=== PATIENT | male | born 1930 | race Caucasian/White ===

== ENCOUNTER → 2016-09-05 | Outpatient (CLI) | payer MEDICARE, OTHER ==
[~2016-09-05] MED LIST: ACET30TAB PO; ATEN25TA PO; ATOR1TAB19 PO; BACT800T5 PO; BIMA01SOL OU; BRIM1OPD OU; CALC600T21 PO; CHONDROITIN PO; COEN200C PO; FISH1000 PO; GLUCOS PO; LIPI10TA PO; MOME50SP; MVI PO; VITA500C24 PO
[2016-09-05 13:47] LABS: MEAN CORPUSCULAR HEMOGLOBIN 29.5 pg (27.0-33.0); MEAN CORPUSCULAR HGB CONC 32.6 g/dl (32.0-36.5); MEAN CORPUSCULAR VOLUME 90.6 fl (80.0-96.0); RED CELL DISTRIBUTION WIDTH 13.9 % (11.5-14.5); WHITE BLOOD COUNT 9.6 K/mm3 (4.0-10.0)
== END ==
LOC: M SMT 10:13
PROVIDERS: ATTEND Urology
DX: C67.9 Malignant neoplasm of bladder, unspecified (principal); Z79.899 Other long term (current) drug therapy

== ENCOUNTER → 2016-10-24 | Outpatient (REF) | payer MEDICARE, OTHER | LOC: M SMT 17:16 | PROVIDERS: ATTEND Urology | DX: Z85.51 Personal history of malignant neoplasm of bladder (principal) ==

== ENCOUNTER → 2016-11-16 | Outpatient (REF) | payer MEDICARE, OTHER ==
[2016-11-16 12:58] LABS: ALBUMIN 3.3 GM/DL (3.2-5.2); ALBUMIN/GLOBULIN RATIO 0.97 (1.00-1.93); ALKALINE PHOSPHATASE 89 U/L (45-117); ALT/SGPT 28 U/L (12-78); ANION GAP 6 MEQ/L (8-16); AST/SGOT 21 U/L (15-37); BILIRUBIN,TOTAL 0.8 MG/DL (0.2-1.0); BLOOD UREA NITROGEN 27 MG/DL (7-18); CALCIUM LEVEL 8.3 MG/DL (8.8-10.2); CARBON DIOXIDE LEVEL 27 MEQ/L (21-32); CHLORIDE LEVEL 107 MEQ/L (98-107); GLOMERULAR FILTRATION RATE > 60.0 (>35); GLUCOSE, FASTING 94 MG/DL (83-110); POTASSIUM SERUM 4.2 MEQ/L (3.5-5.1); SODIUM LEVEL 140 MEQ/L (136-145); TOTAL PROTEIN 6.7 GM/DL (6.4-8.2)
== END ==
LOC: M SFHCPLAZ 08:58
PROVIDERS: ATTEND Internal Medicine
DX: R94.6 Abnormal results of thyroid function studies (principal); Z85.51 Personal history of malignant neoplasm of bladder

== ENCOUNTER → 2017-05-03 | Outpatient (REF) | payer MEDICARE, OTHER ==
[~2017-05-03] MED LIST changes: -CALC600T21 PO; +CALC600T60 PO
== END ==
LOC: M SMT 10:07
PROVIDERS: ATTEND Urology
DX: N39.0 Urinary tract infection, site not specified (principal)

== ENCOUNTER → 2017-05-08 | Outpatient (REF) | payer MEDICARE, OTHER ==
[2017-05-08 12:19] LABS: MEAN CORPUSCULAR HEMOGLOBIN 29.6 pg (27.0-33.0); MEAN CORPUSCULAR HGB CONC 33.3 g/dl (32.0-36.5); MEAN CORPUSCULAR VOLUME 89.1 fl (80.0-96.0); PLATELET COUNT, AUTOMATED 189 10^3/uL (150-450); RED CELL DISTRIBUTION WIDTH 13.9 % (11.5-14.5); WHITE BLOOD COUNT 8.7 10^3/uL (4.0-10.0)
[2017-05-08 13:38] LABS: ALBUMIN 3.4 GM/DL (3.2-5.2); ALBUMIN/GLOBULIN RATIO 0.92 (1.00-1.93); ALKALINE PHOSPHATASE 96 U/L (45-117); ALT/SGPT 35 U/L (12-78); ANION GAP 7 MEQ/L (8-16); AST/SGOT 21 U/L (7-37); BILIRUBIN,TOTAL 0.8 MG/DL (0.2-1.0); BLOOD UREA NITROGEN 22 MG/DL (7-18); CALCIUM LEVEL 8.6 MG/DL (8.8-10.2); CARBON DIOXIDE LEVEL 27 MEQ/L (21-32); CHLORIDE LEVEL 108 MEQ/L (98-107); CHOLESTEROL LEVEL 164 MG/DL (<200); CREATININE FOR GFR 1.16 MG/DL (0.70-1.30); GLOMERULAR FILTRATION RATE > 60.0 (>35); GLUCOSE, FASTING 96 MG/DL (83-110); POTASSIUM SERUM 4.4 MEQ/L (3.5-5.1); SODIUM LEVEL 142 MEQ/L (136-145); TOTAL PROTEIN 7.1 GM/DL (6.4-8.2); TRIGLYCERIDES LEVEL 136 MG/DL (<150)
== END ==
LOC: M SFHCPLAZ 08:37
PROVIDERS: ATTEND Internal Medicine
DX: E78.00 Pure hypercholesterolemia, unspecified (principal); Z85.51 Personal history of malignant neoplasm of bladder; R94.6 Abnormal results of thyroid function studies

== ENCOUNTER → 2017-06-02 | Outpatient (CLI) | payer MEDICARE, OTHER ==
[2017-06-02 17:51] LABS: MEAN CORPUSCULAR HGB CONC 32.9 g/dl (32.0-36.5); MEAN CORPUSCULAR VOLUME 91.1 fl (80.0-96.0); PLATELET COUNT, AUTOMATED 184 10^3/uL (150-450); RED CELL DISTRIBUTION WIDTH 13.5 % (11.5-14.5); WHITE BLOOD COUNT 7.6 10^3/uL (4.0-10.0)
[2017-06-02 18:25] LABS: ALBUMIN 3.3 GM/DL (3.2-5.2); ALBUMIN/GLOBULIN RATIO 0.94 (1.00-1.93); ALKALINE PHOSPHATASE 92 U/L (45-117); ALT/SGPT 31 U/L (12-78); ANION GAP 6 MEQ/L (8-16); AST/SGOT 26 U/L (7-37); BILIRUBIN,TOTAL 0.6 MG/DL (0.2-1.0); BLOOD UREA NITROGEN 24 MG/DL (7-18); CALCIUM LEVEL 8.5 MG/DL (8.8-10.2); CARBON DIOXIDE LEVEL 29 MEQ/L (21-32); CHLORIDE LEVEL 108 MEQ/L (98-107); CREATININE FOR GFR 1.22 MG/DL (0.70-1.30); GLUCOSE, FASTING 135 MG/DL (83-110); POTASSIUM SERUM 4.4 MEQ/L (3.5-5.1); SODIUM LEVEL 143 MEQ/L (136-145); TOTAL PROTEIN 6.8 GM/DL (6.4-8.2)
== END ==
LOC: M SMT 13:54
DX: Z85.51 Personal history of malignant neoplasm of bladder (principal); Z08 Encounter for follow-up examination after completed treatment for malignant neoplasm
CPT/HCPCS: 80053

== ENCOUNTER → 2017-06-07 | Outpatient (REF) | payer MEDICARE, OTHER | LOC: M SMT 17:13 | DX: Z85.51 Personal history of malignant neoplasm of bladder (principal) | CPT/HCPCS: 88108 ==

== ENCOUNTER → 2018-01-22 | Outpatient (REF) | payer MEDICARE, OTHER | LOC: M SMT 17:34 | DX: Z85.51 Personal history of malignant neoplasm of bladder (principal) | CPT/HCPCS: 88108 ==

== ENCOUNTER → 2018-05-09 | Outpatient (REF) | payer MEDICARE, OTHER | LOC: M SFHCPLAZ 16:15 | DX: N18.3 Chronic kidney disease, stage 3 (moderate) (principal); E78.00 Pure hypercholesterolemia, unspecified; E03.9 Hypothyroidism, unspecified; Z85.51 Personal history of malignant neoplasm of bladder; Z53.8 Procedure and treatment not carried out for other reasons ==

== ENCOUNTER → 2018-05-14 | Outpatient (CLI) | payer MEDICARE, OTHER ==
[2018-05-14 13:29] LABS: HEMATOCRIT 46.4 % (42.0-52.0); HEMOGLOBIN 15.2 g/dl (13.5-17.5); MEAN CORPUSCULAR HEMOGLOBIN 29.7 pg (27.0-33.0); MEAN CORPUSCULAR HGB CONC 32.8 g/dl (32.0-36.5); MEAN CORPUSCULAR VOLUME 90.6 fl (80.0-96.0); PLATELET COUNT, AUTOMATED 188 10^3/uL (150-450); RED BLOOD COUNT 5.12 10^6/uL (4.30-6.10); RED CELL DISTRIBUTION WIDTH 13.8 % (11.5-14.5); WHITE BLOOD COUNT 9.6 10^3/uL (4.0-10.0)
[2018-05-14 13:42] LABS: ALBUMIN 3.5 GM/DL (3.2-5.2); ALBUMIN/GLOBULIN RATIO 0.95 (1.00-1.93); ALKALINE PHOSPHATASE 98 U/L (45-117); ALT/SGPT 31 U/L (12-78); ANION GAP 7 MEQ/L (8-16); AST/SGOT 23 U/L (7-37); BILIRUBIN,TOTAL 0.6 MG/DL (0.2-1.0); BLOOD UREA NITROGEN 20 MG/DL (7-18); CALCIUM LEVEL 8.9 MG/DL (8.8-10.2); CARBON DIOXIDE LEVEL 29 MEQ/L (21-32); CHLORIDE LEVEL 106 MEQ/L (98-107); CHOLESTEROL LEVEL 176 MG/DL (<200); CHOLESTEROL RISK RATIO 3.142 (<5); CREATININE FOR GFR 1.14 MG/DL (0.70-1.30); GLOMERULAR FILTRATION RATE > 60.0 (>35); GLUCOSE, FASTING 101 MG/DL (70-100); HDL CHOLESTEROL 56 MG/DL (>40); LDL CHOLESTEROL 93 MG/DL (<100); NON-HDL-C 120 MG/DL; POTASSIUM SERUM 4.5 MEQ/L (3.5-5.1); SODIUM LEVEL 142 MEQ/L (136-145); TOTAL PROTEIN 7.2 GM/DL (6.4-8.2); TRIGLYCERIDES LEVEL 134 MG/DL (<150)
== END ==
LOC: M WUC 08:51
DX: Z85.51 Personal history of malignant neoplasm of bladder (principal); N18.3 Chronic kidney disease, stage 3 (moderate); E78.00 Pure hypercholesterolemia, unspecified; E03.9 Hypothyroidism, unspecified
CPT/HCPCS: 84443

== ENCOUNTER → 2018-07-13 | Outpatient (REF) | payer MEDICARE, OTHER | LOC: M SMT 17:01 | PROVIDERS: ATTEND Urology | DX: Z85.51 Personal history of malignant neoplasm of bladder (principal) ==

== ENCOUNTER 2018-08-08 13:51 | Emergency (ER) | payer MEDICARE, OTHER ==
[~2018-08-08] VITALS: Ht 170.2 cm; Wt 81.8 kg
[2018-08-08] MEDS ORDERED: diazePAM 5 MG TAB PO ONE (14:15)
[2018-08-08] MEDS ORDERED: LIDOCAINE 5% (LIDODERM) PATCH TD ONE (14:15)
[2018-08-08] MEDS ORDERED: SYNT100T PO (14:21)
[2018-08-08] MEDS ORDERED: ACETAMINOPHEN 325 MG TAB PO ONE (14:30)
[2018-08-08] MEDS ORDERED: BUPIVACAINE HCL 0.25% 10 ML VIAL SC ONE (15:15)
--- NOTE | 2018-08-08 15:48 | REP ---
LUMBOSACRAL SPINE: Five views of the lumbosacral spine are performed. There is no compression fracture. There is mild anterior spondylolisthesis of L4 and L5 due to posterior facet arthropathy. There is moderate diffuse spurring. Disc space narrowing and subchondral sclerosis is seen at all levels, relatively mildly at L1-2 through L3-4 and more moderate at L4-5 and L5-S1, with sclerosis and spurring of the facet joints at L4-5 and L5-S1 levels. The posterior elements are intact. There is mild curvature toward the right. There is narrowing and sclerosis at the sacroiliac joints. IMPRESSION: Degenerative changes. No evidence of fracture or dislocation. Electronically Signed by Kendall Amaro MD 08/08/2018 11:41 P
[2018-08-08] MEDS ORDERED: VALI5TAB PO (17:48)
[2018-08-08] MEDS ORDERED: LIDO5DIS41 TD (17:49)
[2018-08-08 18:18] VITALS: BP 159/83
[2018-08-08] MEDS ORDERED: **NOTE PATIENT COMMENT** MISC XX SCH (21:00)
== END 2018-08-08 18:20 | disposition home or self-care (01) ==
LOC: M ED 13:51 → EDBD 13:51 → M ED 18:20
DX: M62.830 Muscle spasm of back (principal); N18.3 Chronic kidney disease, stage 3 (moderate); E78.9 Disorder of lipoprotein metabolism, unspecified; E73.9 Lactose intolerance, unspecified; Z79.899 Other long term (current) drug therapy; Z79.890 Hormone replacement therapy

== ENCOUNTER → 2018-11-08 | Outpatient (REF) | payer MEDICARE, OTHER ==
[~2018-11-08] MED LIST changes: +ACET-716 PO; -ACET30TAB PO; +LIDO5DIS41 TD; +SYNT100T PO; +VALI5TAB PO
[2018-11-08 11:37] LABS: ALBUMIN 3.3 GM/DL (3.2-5.2); ALT/SGPT 33 U/L (12-78); BILIRUBIN,TOTAL 0.8 MG/DL (0.2-1.0); BLOOD UREA NITROGEN 20 MG/DL (7-18); CALCIUM LEVEL 8.5 MG/DL (8.8-10.2); CARBON DIOXIDE LEVEL 27 MEQ/L (21-32); CHLORIDE LEVEL 108 MEQ/L (98-107); CREATININE FOR GFR 1.17 MG/DL (0.70-1.30); GLOMERULAR FILTRATION RATE > 60.0 (>35); GLUCOSE, FASTING 95 MG/DL (70-100); POTASSIUM SERUM 4.5 MEQ/L (3.5-5.1); SODIUM LEVEL 143 MEQ/L (136-145); TOTAL PROTEIN 6.9 GM/DL (6.4-8.2)
== END ==
LOC: M SFHCPLAZ 08:55
PROVIDERS: ATTEND Internal Medicine
DX: N18.3 Chronic kidney disease, stage 3 (moderate) (principal); E03.9 Hypothyroidism, unspecified

== ENCOUNTER → 2019-01-14 | Outpatient (REF) | payer MEDICARE, OTHER | LOC: M SMT 12:51 | PROVIDERS: ATTEND Urology | DX: Z85.51 Personal history of malignant neoplasm of bladder (principal) ==

== ENCOUNTER → 2019-05-09 | Outpatient (REF) | payer MEDICARE, OTHER ==
[2019-05-09 12:23] LABS: HEMATOCRIT 44.1 % (42.0-52.0); HEMOGLOBIN 14.3 g/dl (13.5-17.5); MEAN CORPUSCULAR HEMOGLOBIN 29.8 pg (27.0-33.0); MEAN CORPUSCULAR HGB CONC 32.4 g/dl (32.0-36.5); MEAN CORPUSCULAR VOLUME 91.9 fl (80.0-96.0); PLATELET COUNT, AUTOMATED 167 10^3/uL (150-450); WHITE BLOOD COUNT 8.9 10^3/uL (4.0-10.0)
[2019-05-09 12:29] LABS: ALBUMIN 3.3 GM/DL (3.2-5.2); ALT/SGPT 38 U/L (12-78); BLOOD UREA NITROGEN 26 MG/DL (7-18); CALCIUM LEVEL 8.6 MG/DL (8.8-10.2); CARBON DIOXIDE LEVEL 29 MEQ/L (21-32); CHLORIDE LEVEL 108 MEQ/L (98-107); CHOLESTEROL LEVEL 158 MG/DL (<200); CHOLESTEROL RISK RATIO 2.872 (<5); CREATININE FOR GFR 1.14 MG/DL (0.70-1.30); GLOMERULAR FILTRATION RATE > 60.0 (>35); GLUCOSE, FASTING 99 MG/DL (70-100); HDL CHOLESTEROL 55 MG/DL (>40); LDL CHOLESTEROL 79 MG/DL (<100); NON-HDL-C 103 MG/DL; POTASSIUM SERUM 4.1 MEQ/L (3.5-5.1); SODIUM LEVEL 142 MEQ/L (136-145); TOTAL PROTEIN 6.8 GM/DL (6.4-8.2); TRIGLYCERIDES LEVEL 118 MG/DL (<150)
== END ==
LOC: M SFHCPLAZ 09:01
PROVIDERS: ATTEND Internal Medicine
DX: Z85.51 Personal history of malignant neoplasm of bladder (principal); N18.3 Chronic kidney disease, stage 3 (moderate); E78.00 Pure hypercholesterolemia, unspecified

== ENCOUNTER 2019-09-09 17:26 | Inpatient (IN) | payer MEDICARE, OTHER ==
[~2019-09-09] VITALS: Ht 182.9 cm; Wt 77.7 kg
[~2019-09-09 17:26] MED LIST changes: -COEN200C PO; +RA C200C2 PO
[2019-09-09] MEDS ORDERED: ONDANSETRON 4MG/2ML VIAL (J2405) IV ONE (17:45)
[2019-09-09] MEDS ORDERED: MECLIZINE 25 MG TABLET PO ONE (17:45)
[2019-09-09 18:06] LABS: BASO % 0.4 % (0.0-1.0); HEMATOCRIT 43.8 % (42.0-52.0); HEMOGLOBIN 14.5 g/dl (13.5-17.5); LYMPH # 0.9 10^3/uL (1.5-5.0); LYMPH % 9.3 % (24.0-44.0); MEAN CORPUSCULAR HGB CONC 33.1 g/dl (32.0-36.5); MEAN CORPUSCULAR VOLUME 90.5 fl (80.0-96.0); MONO # 0.3 10^3/uL (0.0-0.8); MONO % 2.5 % (0.0-5.0); NEUTROPHILS # 8.8 10^3/uL (1.5-8.5); NEUTROPHILS % 87.3 % (36.0-66.0); PLATELET COUNT, AUTOMATED 171 10^3/uL (150-450); RED BLOOD COUNT 4.84 10^6/uL (4.30-6.10); WHITE BLOOD COUNT 10.1 10^3/uL (4.0-10.0)
[2019-09-09 18:37] LABS: BLOOD UREA NITROGEN 22 MG/DL (7-18); CALCIUM LEVEL 8.8 MG/DL (8.8-10.2); CARBON DIOXIDE LEVEL 25 MEQ/L (21-32); CHLORIDE LEVEL 105 MEQ/L (98-107); CPK CREATINE PHOSPHOKINASE 91 U/L (39-308); CREATININE FOR GFR 1.17 MG/DL (0.70-1.30); GLOMERULAR FILTRATION RATE > 60.0 (>35); GLUCOSE, FASTING 141 MG/DL (70-100); POTASSIUM SERUM 4.1 MEQ/L (3.5-5.1); SODIUM LEVEL 137 MEQ/L (136-145); TROPONIN I < 0.02 NG/ML (< 0.10)
--- NOTE | 2019-09-09 18:40 | REPVR ---
PROCEDURE INFORMATION: Exam: CT Head Without Contrast Exam date and time: 09/09/2019 6:26 PM Age: 89 years old Clinical indication: Dizziness; Additional info: Dizziness R/O CVA TECHNIQUE: Imaging protocol: Computed tomography of the head without contrast. Radiation optimization: All CT scans at this facility use at least one of these dose optimization techniques: automated exposure control; mA and/or kV adjustment per patient size (includes targeted exams where dose is matched to clinical indication); or iterative reconstruction. Other technique: STROKE PROTOCOL was implemented. COMPARISON: No relevant prior studies available. FINDINGS: Brain: There is no acute cortical infarction, intracranial hemorrhage or mass. Ventricles: The ventricles appear enlarged, but not out of proportion to the degree of parenchymal volume loss. Bones/joints: Unremarkable. No acute fracture. Sinuses: Visualized sinuses are unremarkable. No fluid levels. Mastoid air cells: Visualized mastoid air cells are well aerated. Soft tissues: Unremarkable. Vasculature: Atherosclerosis. IMPRESSION: No acute intracranial findings. ASSESSMENT: ASPECTS ([place] Stroke Program Early CT Score) is ten. Electronically signed by: Leyla Durbin On 09/09/2019 18:40:24 PM
--- NOTE | 2019-09-09 21:07 | REPVR ---
PROCEDURE INFORMATION: Exam: MR Head Without Contrast Exam date and time: 09/09/2019 7:33 PM Age: 89 years old Clinical indication: Dizziness; Additional info: Intractable vertigo TECHNIQUE: Imaging protocol: MR of the head without contrast. COMPARISON: CT Head without contrast 09/09/2019 6:21 PM FINDINGS: Brain: There is no restricted diffusion to suggest acute cortical infarction. On the FLAIR sequence there is no acute intracranial hemorrhage. There are foci of white matter hyperintensity within the centrum semiovale most frequently associated with microangiopathy is is a small focus of hyperintensity in the right putamen and several foci in the right external and extreme capsules. No evidence of prior microhemorrhages. There is dolichoectasia of the anterior and posterior circulation. Ventricles: The ventricles appear enlarged, but not out of proportion to the degree of parenchymal volume loss. Bones/joints: Unremarkable. Soft tissues: Unremarkable. Sinuses: Normal as visualized. No acute sinusitis. Mastoid air cells: Normal as visualized. No mastoid effusion. Orbits: Unremarkable. IMPRESSION: No acute cerebral infarction or intracranial hemorrhage. Electronically signed by: Leyla Durbin On 09/09/2019 21:06:41 PM
--- NOTE | 2019-09-09 21:17 | REPVR ---
PROCEDURE INFORMATION: Exam: MR Angiogram Head Without Contrast, Arteries Exam date and time: 09/09/2019 7:33 PM Age: 89 years old Clinical indication: Vertigo; Additional info: Intractable vertigo TECHNIQUE: Imaging protocol: MR angiogram head without contrast. Exam focused on the arteries. COMPARISON: CT Head without contrast 09/09/2019 6:21 PM FINDINGS: Right internal carotid artery: Intracranial segment is patent with no significant stenosis. No aneurysm. Right anterior cerebral artery: No occlusion or significant stenosis. No aneurysm. Right middle cerebral artery: No occlusion or significant stenosis. No aneurysm. Right posterior cerebral artery: No occlusion or significant stenosis. No aneurysm. Right vertebral artery: No occlusion or significant stenosis. No aneurysm. Left internal carotid artery: Intracranial segment is patent with no significant stenosis. No aneurysm. Left anterior cerebral artery: No occlusion or significant stenosis. No aneurysm. Left middle cerebral artery: No occlusion or significant stenosis. No aneurysm. Left posterior cerebral artery: No occlusion or significant stenosis. No aneurysm. Left vertebral artery: No occlusion or significant stenosis. No aneurysm. Basilar artery: No occlusion or significant stenosis. No aneurysm. IMPRESSION: No stenosis or occlusion. Electronically signed by: Leyla Durbin On 09/09/2019 21:16:51 PM
[2019-09-09] MEDS ORDERED: diazePAM 10MG/2ML SYRINGE (J3360 PER 5MG) IV ONE (21:45)
[2019-09-09 22:15] LABS: NT-PRO BNP 97 PG/ML (<450)
[2019-09-09] MEDS ORDERED: VITMTA PO (22:27)
[2019-09-09] MEDS ORDERED: GLUCTAB6 PO (22:27)
[2019-09-09] MEDS ORDERED: OCEA0.654 (22:27)
[2019-09-09] MEDS ORDERED: METO1TAB32 PO (22:27)
[2019-09-09] MEDS ORDERED: FISH1000 PO (22:27)
[2019-09-09] MEDS ORDERED: FLUTICASONE PROP 0.05% NASAL SPRAY 16 GM (FLONASE) PRN (22:30)
[2019-09-09] MEDS ORDERED: SODIUM CHLORIDE NASAL 0.65% SPRAY BTL (OCEAN) PRN (22:30)
--- NOTE | 2019-09-09 23:06 | HPEPDOC ---
[facility] Medical History & Physical Date of Admission Sep 09, 2019 Date of Service: Sep 09, 2019 Primary Care Physician: Jhony Plata Attending Physician: GE SINGLETON MD History and Physical PRIMARY CARE PROVIDER: Jhony Plata M.D. ATTENDING: Dr. Ge Singleton CHIEF COMPLAINT: Dizziness HISTORY OF PRESENT ILLNESS: Patient is a 89 year old male presenting with chief complaint of dizziness. Patient states after getting out of the shower today he began to feel dizzy at approximately 1330 to the point where he felt like he was going to fall to the floor, he initially thought it would self resolve, however it continued to worsen sought care in the ED. He denies feeling as though he was going to pass out he just felt unsteady on his feet. He states similar episodes like this happen before but have not been as severe and undergone away on their own without any intervention. These typically occur maybe once a year. He also admits to 4-5 episodes of small amounts of emesis. He states the dizziness is constant it is aggravated by opening his eyes, talking, trying to walk or sit up. It is been alleviated with nothing including Antivert and Valium. He denies any recent medication changes, illnesses, or recent exposures. Workup in the emergency department was largely benign, with normal imaging, near normal lab work outside of a mildly elevated CBC and BUN. Patient was given Antivert and Zofran in the emergency department without any relief of his symptoms. He was given Valium 5 minutes into our encounter which made him drowsy but did not relieve any of his vertiginous symptoms. PAST MEDICAL HISTORY: Hypercholesterolemia Stage III CKD Acquired hypothyroidism Aortic valve disease Ventricular premature depolarization Allergic rhinitis Glaucoma Osteoarthritis of left hip History of lung lesion History of bladder cancer History of tuberculosis status post lobectomy PAST SURGICAL HISTORY: Appendectomy (1947) Lobectomy, upper left lung (01/09/1953) secondary to TB Partial thoracoplasty (01/29/1953) Vasectomy (1972) Septal deviation repair and sinus surgery (2006) Cystoscopy and TURBT (11/19/2013) Cystoscopy 07/13/2018 Cystoscopy 01/14/2019 Bilateral cataract surgery (06/2015) Laser glaucoma surgery for narrow angle glaucoma (2007) SOCIAL HISTORY: Admits to infrequent alcohol use, former tobacco user, it has been more than 10 years since his last cigarette. Denies any marijuana, heroin, cocaine, or PCP use. Retired. No Pets at home. FAMILY HISTORY: One brother at age 70 due to prostate cancer, one brother living with heart disease and heart valve replacement, one sister due to tuberculosis, second sister at 72 years old to brain hemorrhage, third sister age 28 during childbirth, fourth sister at age 86. Father at age 50 and MVA. Mother age 52 of CVA, hypertension. ALLERGIES: Please see below. REVIEW OF SYSTEMS: GENERAL: Denies fevers, chills, recent unexpected weight change, night sweats, hemoptysis HEENT: Denies headache, recent vision changes, acute hearing loss, sore throat CARDIOVASCULAR: Denies chest pain, palpitations, orthopnea RESPIRATORY: Denies shortness of breath, wheezing, cough GASTROINTESTINAL: denies abdominal pain, constipation, diarrhea, bloody stool GENITOURINARY: Denies dysuria,urinary urgency, hematuria. MUSCULOSKELETAL: Denies muscle/joint pain, weakness, stiffness NEUROLOGICAL: Denies any numbness/tingling, focal weakness, or syncope HOME MEDICATIONS: Please see below. PHYSICAL EXAMINATION: Vitals: (see below) General: Patient is lying supine in bed with his eyes shut in no acute distress, he is easily arousable HEENT: Normocephalic, atraumatic. EOMI, horizontal nystagmus. Glaucomic eyes L>R. No scleral icterus. Dry mucous membranes. EACs clear bilaterally, TMs normal bilaterally. No pharyngeal erythema or uvular deviation. Neck: No JVD, lymphadenopathy, or thyromegaly. Cardiac: RRR,coarse holosystolic ejection murmur 4/6, No gallops, rubs. Pulm: Clear to auscultation b/l. Symmetric thorax. No wheezing, crackles, rhonchi Abd: Bowel Sounds present. Abdomen is soft, non-tender, non-distended. No guarding, rebound tenderness, or rigidity. No hepatosplenomegaly. No masses or eccymosis. Ext: No edema or cyanosis Neuro: Strength +5/5 BUE and BLE. CN 2-12 intact. Sensation to fine touch intact in BLE and BUE. LABORATORY DATA: See below. IMAGIN09/09/[address] without contrast: No acute intracranial findings. 09/09/2019 MRI brain without contrast: No acute cerebral infarction or intracranial hemorrhage. 09/09/2019 MRA brain without contrast: No stenosis or occlusion. MICROBIOLOGY: Please see below. ASSESSMENT/PLAN: Patient is an 89-year-old male admitted for intractable dizziness #. Intractable dizziness - Head imaging negative, duplex US of neck pending. But initial imaging is negative for CVA, tumor, MS less likely. - Ordering orthostatics, may repeat echo depending on whether or not we can obtain echo recently done at Dr. Kumar's office. - No recent med changes, this is a less likely cause. Low clinical suspicion for psychiatric cause. - Based on his symptoms and physical exam I suspect his vertigo is peripheral and as his vertigo is episodic, occurring spontaneously without any associated trigger raises my clinical suspicion for vestibular neuritis. We will treat symptomatically for time being with [id number] days, dramamine, and reglan. #. Asymptomatic severe hypertension -Continue to monitor as patient appears dry on exam, may need to add additional anti-hypertensive if he is persistently elevated #. Aortic valve sclerosis - 09/2018 echocardiogram demonstrated mild aortic stenosis, LVEF of 70%, grade 1 LV diastolic dysfunction, mild dilatation of proximal ascending aorta. Patient apparently was seen at Dr. Kumar's office within the last month and no changes were made. Will attempt to obtain outside records in AM, otherwise should repeat echo during this admission to ensure no cardiogenic cause of dizziness #. Hypercholesterolemia -Continue home lipitor 10 mg daily #. hypothyroidism -Continue synthroid 100 mcg daily #. PVC's -Continuing home regimen of metoprolol succinate 25 mg ER as prescribed by her software quality assurance specialist #.Stage III CKD - Creatinine currently at baseline, no changes necessary #. Glaucoma - Continue lumigan and alphagan eye drops #.Allergic Rhinitis -Continue nasonex as needed -DVT prophy: Teds and sequentials, heparin Vital Signs Vital Signs Date Time Temp Pulse Resp B/P (MAP) Pulse Ox O2 Delivery O2 Flow Rate FiO2 09/09/19 21:15 98.1 79 16 182/85 (117) 94 Laboratory Data Labs 24H Laboratory Tests 2 09/09/19 17:53: Immature Granulocyte % (Auto) 0.5, Neutrophils (%) (Auto) 87.3H, Lymphocytes (%) (Auto) 9.3L, Monocytes (%) (Auto) 2.5, Eosinophils (%) (Auto) 0.0, Basophils (%) (Auto) 0.4, Neutrophils # (Auto) 8.8H, Lymphocytes # (Auto) 0.9L, Monocytes # (Auto) 0.3, Eosinophils # (Auto) 0.0, Basophils # (Auto) 0.0, Nucleated Red Blood Cells % (auto) 0.0, Anion Gap 7L, Glomerular Filtration Rate > 60.0, Calcium Level 8.8, Total Creatine Kinase 91, Creatine Kinase MB 2.0, Creatine Kinase MB Relative Index 2.20, Troponin I < 0.02, [id number]-Type Natriuretic Peptide 97 CBC/BMP Laboratory Tests 09/09/19 17:53 Home Medications Scheduled Atorvastatin Calcium (Lipitor) 10 Mg Tab, 10 MG PO DAILY Bimatoprost (Lumigan) 50 Drop/2.5 Ml Karina, 1 DROP OU QHS Brimonidine Tartrate (Alphagan P) 100 Drop/5 Ml Soln, 1 DROP OU BID Gluc Zuleta/Chondro Zuleta A/Vit C/Mn (Glucosamine Chondroitin Tab) 1 Each Tablet, 1 TAB PO BID Metoprolol Succinate (Metoprolol Succinate) 25 Mg Tab.er.24h, 12.5 MG PO DAILY Multivitamins (Thera M Plus Tablet) 1 Each Tablet, 1 TAB PO DAILY [place]-3 Fatty Acids/Fish Oil (Fish Oil 1,000 mg Capsule) 1 Each Capsule, 1,000 MG PO DAILY Ubidecarenone (Coenzyme Q10) 200 Mg Cap, 200 MG PO DAILY Scheduled PRN Mometasone Furoate Monohydrate (Nasonex) 120 [place]/17 Gm Naspr, 2 SPRAY NA DAILY PRN for NASAL CONGESTION Sodium Chloride ([place]) 104 Ml [place], 1 SPRAY NA QID PRN for NASAL DRYNESS Allergies Coded Allergies: lactose (Verified Adverse Reaction, Intermediate, 09/09/19) A-FIB/CHADSVASC A-FIB History Current/History of A-Fib/PAF?: No GME ATTESTATION GME ATTESTATION My faculty preceptor for this patient encounter was physically present during the encounter and was fully available. All aspects of the patient interview, examination, medical decision making process, and medical care plan development were reviewed and approved by the faculty preceptor. The faculty preceptor is aware and concurs with the plan as stated in the body of this note and will att est to such by his/her cosignature. ATTENDING NOTE TIME OF SERVICE 945 PM is n 89 yr old w a hx of bladder cancer, vertigo, CKD3, Hypothyrodism, & AV sclerosis, who is admitted for evaluation of severe dizziness whos cause is TBD. 1. Dizziness - differential includes TIAs, BPPV, vestibular neuritis- Plan: admit to PCU / telemetry / orthostats / carotid US / if work up is negative will consult PT for jeri beard and salvador adame Rest per 's H&P KILEY POND DO Sep 09, 2019 23:06 GE SINGLETON MD Sep 10, 2019 00:21
[2019-09-09] MEDS ORDERED: LISINOPRIL *2.5 MG* TAB PO ONE (23:45)
[2019-09-10] VITALS (7 sets, daily range): BP systolic 125–155; BP diastolic 62–89
[2019-09-10 00:11] LABS: HEMOGLOBIN A1c 6.2 %
[2019-09-10 05:47] LABS: BLOOD UREA NITROGEN 20 MG/DL (7-18); CALCIUM LEVEL 8.6 MG/DL (8.8-10.2); CARBON DIOXIDE LEVEL 27 MEQ/L (21-32); CHLORIDE LEVEL 106 MEQ/L (98-107); CREATININE FOR GFR 1.02 MG/DL (0.70-1.30); GLOMERULAR FILTRATION RATE > 60.0 (>35); GLUCOSE, FASTING 130 MG/DL (70-100); POTASSIUM SERUM 4.7 MEQ/L (3.5-5.1); SODIUM LEVEL 137 MEQ/L (136-145)
[2019-09-10] MEDS: LEVOTHYROXINE 100MCG TABLET (0.1MG) PO SCH (06:11)
[2019-09-10] MEDS: HEPARIN SOD (PORCINE) 5000 UNITS/ML VIAL (J1644 PER 1000UNITS) SC SCH ×3 (06:11→21:10)
--- NOTE | 2019-09-10 08:42 | ECGEPIP ---
[facility] - ED Test Date: 2019-09-09 Pat Name: MARIEL ROMERO Department: Room: [place] [id number] Gender: Male Air Sampling And Monitoring: GREGORIA : 1930 Requested By: Michael Gaines Order Number: [id number] Reading MD: Michael Fernandes Measurements Intervals [place] Rate: 66 P: 13 [place]: 196 QRS: -18 QRSD: 126 T: -16 QT: 463 QTc: 486 Interpretive Statements SINUS RHYTHM RIGHT BUNDLE BRANCH BLOCK INFERIOR MYOCARDIAL INFARCTION, OF INDETERMINATE AGE NO PRIORS FOR COMPARISON Electronically Signed on 09-10-2019 8:41:47 EDT by Michael Fernandes
[2019-09-10] MEDS: ATORVASTATIN 10 MG TAB PO SCH (08:59)
[2019-09-10] MEDS: METOPROLOL SUCC *XL* 25MG TAB (TopROL *XL*) PO SCH (08:59)
[2019-09-10] MEDS ORDERED: predniSONE 20 MG TAB PO SCH (09:00)
[2019-09-10] MEDS: BRIMONIDINE 0.1% OPHTH SOLN 5 ML OU SCH ×2 (09:00→21:10)
[2019-09-10] MEDS: CO-ENZYME Q10 50 MG CAP PO SCH (09:00)
--- NOTE | 2019-09-10 10:22 | REP ---
DUPLEX CAROTID SONOGRAPHY: HISTORY: Dizziness, rule out CVA TIA. Comparison study January 19, 2010. FINDINGS: Antegrade flow was observed in both vertebral arteries. RIGHT CAROTID: The right common carotid artery shows mild intimal thickening. There is mild soft plaquing at the flow divide of the carotid bifurcation. Color flow and spectral Doppler interrogation are unremarkable on the right carotid study. Velocity Chart Right Carotid: PSV EDV Right CCA 83 cm/s Right ICA 71 cm/s 20 cm/s Right ECA 61 cm/s Right ICA/CCA ratio normal 0.9. IMPRESSION: Less than 50% category narrowing in the right ICA by Doppler velocity criteria. Doppler velocities have not increased since the prior study. LEFT CAROTID: The left common carotid artery shows mild diffuse intimal thickening. There is mild mixed plaquing in the proximal ICA on two-dimensional scanning. Color flow and spectral Doppler interrogation is unremarkable on the left. Velocity Chart Left Carotid: PSV EDV Left CCA 89 cm/s Left ICA 57 cm/s 12 cm/s Left ECA 99 cm/s Left ICA/CCA ratio normal 0.6. IMPRESSION: Less than 50% category narrowing. Doppler velocities have not increased in the left ICA since the prior study. Electronically Signed by Rdige Oquendo MD 09/10/2019 10:42 A
[2019-09-10] MEDS ORDERED: PILL CUTTER 1 EACH XX PRN (11:30)
[2019-09-10] MEDS ORDERED: diazePAM 5 MG TAB PO PRN (11:30)
[2019-09-10] MEDS: METOCLOPRAMIDE INJ 10MG/2ML VIAL (J2765) IV PRN (12:54)
[2019-09-10] MEDS: LATANOPROST 0.005% OPHTH SOLN 2.5 ML OU SCH (21:10)
--- NOTE | 2019-09-10 22:30 | IPNPDOC ---
Date Seen The patient was seen on 09/10/19. Progress Note SUBJECTIVE: 89 y.o male w/ PMH of Bladder cancer, CKD, HTN & HLD is admitted for persistent vertigo. He has had similar episodes in the past but this has been the longest and severest episode. He is laying flat with his eyes closed as any movement and opening eyes makes the vertigo worse. He denies any alleviating factors, denies improvement with Meclizine/Zofran/Diazepam. He reports associated vomiting, no other complaints. 10 point review of system is negative except for above. OBJECTIVE PHYSICAL EXAMINATION: VITAL SIGNS: Please see below. GENERAL: No distress HEENT: moist mucus membranes CARDIOVASCULAR: S1, S2, no murmurs RESPIRATORY: Clear to auscultation ABDOMINAL: Soft, non-tender, non-distended, +BS EXTREMITIES: ROM intact NEUROLOGICAL: No focal deficits, lateral nystagmus noted with leftward gaze PSYCHOLOGICAL: Calm LABORATORY DATA, IMAGING STUDIES, MICROBIOLOGY: Please see below. ASSESSMENT AND PLAN: 89 y.o male w/ multiple medical comorbidities is admitted for severe vertigo. PROBLEMS: 1. Vertigo: Brain imaging negative, discussed with Neurologist (Dr. Menard), recommends vestibular therapy, supportive care for symptom control and outpatient follow up w/ Neurology. 2. HTN: continue Metoprolol 3. Hypothyroidism: continue Levothyroxine 4. HLD: continue atorvastatin DVT Prophylaxis: Heparin SubQ GI Prophylaxis: Not needed VS, I&O, 24H, Fishbone Vital Signs/I&O Vital Signs Date Time Temp Pulse Resp B/P (MAP) Pulse Ox O2 Delivery O2 Flow Rate FiO2 09/10/19 14:00 98.1 65 16 155/72 (99) 94 Room Air I&O- Last 24 Hours up to 6 AM 09/10/19 06:00 Intake Total 0 ml Output Total 100 ml Balance -100 ml Laboratory Data 24H LABS Laboratory Tests 2 09/10/19 05:16: Anion Gap 4L, Glomerular Filtration Rate > 60.0, Calcium Level 8.6L CBC/BMP Laboratory Tests 09/10/19 05:16 EFFIE OROPEZA MD Sep 10, 2019 22:30
[2019-09-11 06:00] VITALS: BP 148/79
[2019-09-11 06:01] LABS: HEMATOCRIT 43.1 % (42.0-52.0); HEMOGLOBIN 14.2 g/dl (13.5-17.5); MEAN CORPUSCULAR HEMOGLOBIN 29.5 pg (27.0-33.0); MEAN CORPUSCULAR HGB CONC 32.9 g/dl (32.0-36.5); MEAN CORPUSCULAR VOLUME 89.6 fl (80.0-96.0); PLATELET COUNT, AUTOMATED 194 10^3/uL (150-450); RED BLOOD COUNT 4.81 10^6/uL (4.30-6.10); WHITE BLOOD COUNT 14.3 10^3/uL (4.0-10.0)
[2019-09-11 06:28] LABS: CALCIUM LEVEL 8.8 MG/DL (8.8-10.2); CREATININE FOR GFR 1.23 MG/DL (0.70-1.30); MAGNESIUM LEVEL 2.4 MG/DL (1.8-2.4); PHOSPHORUS LEVEL 2.4 MG/DL (2.5-4.9); POTASSIUM SERUM 4.9 MEQ/L (3.5-5.1)
[2019-09-11] MEDS: LEVOTHYROXINE 100MCG TABLET (0.1MG) PO SCH (06:29)
[2019-09-11] MEDS: HEPARIN SOD (PORCINE) 5000 UNITS/ML VIAL (J1644 PER 1000UNITS) SC SCH ×2 (06:29→20:57)
[2019-09-11] MEDS ORDERED: K-PHOS NEUTRAL 250MG TABLET (SOD.PHOSPHATE/POT.PHOSPHATE) PO ONE (09:00)
[2019-09-11] MEDS: CO-ENZYME Q10 50 MG CAP PO SCH (09:49)
[2019-09-11] MEDS: METOPROLOL SUCC *XL* 25MG TAB (TopROL *XL*) PO SCH (09:53)
[2019-09-11] MEDS: ATORVASTATIN 10 MG TAB PO SCH (09:58)
[2019-09-11] MEDS: BRIMONIDINE 0.1% OPHTH SOLN 5 ML OU SCH ×2 (09:59→20:57)
[2019-09-11 10:00] VITALS: BP_SYST 135; BP_SYST 138; BP_SYST 140; BP_DIAS 66; BP_DIAS 67; BP_DIAS 71
[2019-09-11 14:00] VITALS: BP 165/80
[2019-09-11 16:30] VITALS: BP 159/76
[2019-09-11] MEDS: LATANOPROST 0.005% OPHTH SOLN 2.5 ML OU SCH (20:57)
--- NOTE | 2019-09-11 21:02 | IPNPDOC ---
Date Seen The patient was seen on 09/11/19. Progress Note SUBJECTIVE: 89 y.o male w/ PMH of Bladder cancer, CKD, HTN & HLD is admitted for persistent vertigo. He has had similar episodes in the past but this has been the longest and severest episode. He feels better today, sitting up, was able to ambulate to the bathroom with assistance. He has no additional complaints at this time. He fell yesterday when ambulating to the bathroom, hit his head on th e wall, no bruising noted, no loss of consciousness, no neurological change overnight. 10 point review of system is negative except for above. OBJECTIVE PHYSICAL EXAMINATION: VITAL SIGNS: Please see below. GENERAL: No distress HEENT: moist mucus membranes CARDIOVASCULAR: S1, S2, no murmurs RESPIRATORY: Clear to auscultation ABDOMINAL: Soft, non-tender, non-distended, +BS EXTREMITIES: ROM intact NEUROLOGICAL: No focal deficits, lateral nystagmus improving PSYCHOLOGICAL: Calm LABORATORY DATA, IMAGING STUDIES, MICROBIOLOGY: Please see below. ASSESSMENT AND PLAN: 89 y.o male w/ multiple medical comorbidities is admitted for severe vertigo. PROBLEMS: 1. Vertigo: Brain imaging negative, discussed with Neurologist (Dr. Menard), continue vestibular therapy, supportive care for symptom control and outpatient follow up w/ Neurology. Plan for d/c tomorrow if clinically stable. 2. HTN: continue Metoprolol 3. Hypothyroidism: continue Levothyroxine 4. HLD: continue atorvastatin DVT Prophylaxis: Heparin SubQ GI Prophylaxis: Not needed VS, I&O, 24H, Fishbone Vital Signs/I&O Vital Signs Date Time Temp Pulse Resp B/P (MAP) Pulse Ox O2 Delivery O2 Flow Rate FiO2 09/11/19 16:30 159/76 (103) 09/11/19 14:00 97.7 67 20 96 Room Air I&O- Last 24 Hours up to 6 AM 09/11/19 06:00 Intake Total 440 ml Output Total 1825 ml Balance -1385 ml Laboratory Data 24H LABS Laboratory Tests 2 09/11/19 05:16: Nucleated Red Blood Cells % (auto) 0.0, Anion Gap 0L, Glomerular Filtration Rate 59.0, Calcium Level 8.8, Phosphorus Level 2.4L, Magnesium Level 2.4 CBC/BMP Laboratory Tests 09/11/19 05:16 EFFIE OROPEZA MD Sep 11, 2019 21:02
[2019-09-11 22:00] VITALS: BP 156/76
[2019-09-12] MEDS: LEVOTHYROXINE 100MCG TABLET (0.1MG) PO SCH (05:53)
[2019-09-12 06:00] VITALS: BP 144/70
[2019-09-12] MEDS: ATORVASTATIN 10 MG TAB PO SCH (08:20)
[2019-09-12] MEDS: HEPARIN SOD (PORCINE) 5000 UNITS/ML VIAL (J1644 PER 1000UNITS) SC SCH ×2 (08:21→20:49)
[2019-09-12] MEDS: BRIMONIDINE 0.1% OPHTH SOLN 5 ML OU SCH ×2 (08:21→20:49)
[2019-09-12] MEDS: CO-ENZYME Q10 50 MG CAP PO SCH (08:21)
[2019-09-12] MEDS: METOPROLOL SUCC *XL* 25MG TAB (TopROL *XL*) PO SCH (08:22)
[2019-09-12] MEDS ORDERED: MIRALAX *UNIT DOSE* 17GM PACKET PO PRN (09:15)
[2019-09-12 09:40] VITALS: BP 128/71
[2019-09-12 10:20] VITALS: BP 138/73
[2019-09-12] MEDS: METOCLOPRAMIDE INJ 10MG/2ML VIAL (J2765) IV PRN (10:27)
[2019-09-12] MEDS ORDERED: predniSONE 50 MG TAB PO ONE (12:00)
[2019-09-12 14:00] VITALS: BP 140/73
[2019-09-12] MEDS ORDERED: FLEET ENEMA PR PRN (14:15)
--- NOTE | 2019-09-12 15:05 | IPNPDOC ---
Date Seen The patient was seen on 09/12/19. Progress Note SUBJECTIVE: 89 y.o male w/ PMH of Bladder cancer, CKD, HTN & HLD is admitted for persistent vertigo. He has had similar episodes in the past but this has been the longest and severest episode. He remains unchanged from yesterday, continues to have significant vertigo with any movement of the head. He has no additional complaints, has not vomited since admission. 10 point review of system is negative except for above. OBJECTIVE PHYSICAL EXAMINATION: VITAL SIGNS: Please see below. GENERAL: No distress HEENT: moist mucus membranes CARDIOVASCULAR: S1, S2, no murmurs RESPIRATORY: Clear to auscultation ABDOMINAL: Soft, non-tender, non-distended, +BS EXTREMITIES: ROM intact NEUROLOGICAL: No focal deficits, lateral nystagmus present PSYCHOLOGICAL: Calm LABORATORY DATA, IMAGING STUDIES, MICROBIOLOGY: Please see below. ASSESSMENT AND PLAN: 89 y.o male w/ multiple medical comorbidities is admitted for severe vertigo. PROBLEMS: 1. Vertigo: Brain imaging negative, discussed with Neurologist (Dr. Menard), continue vestibular therapy, supportive care for symptom control and outpatient follow up w/ Neurology. He showed slight improvement w/ initial prednisone, will restart prednisone at 50 mg daily. 2. HTN: continue Metoprolol 3. Hypothyroidism: continue Levothyroxine 4. HLD: continue atorvastatin DVT Prophylaxis: Heparin SubQ GI Prophylaxis: Not needed VS, I&O, 24H, Fishbone Vital Signs/I&O Vital Signs Date Time Temp Pulse Resp B/P (MAP) Pulse Ox O2 Delivery O2 Flow Rate FiO2 09/12/19 14:00 97.1 63 16 140/73 (95) 96 Room Air I&O- Last 24 Hours up to 6 AM 09/12/19 06:00 Intake Total 990 ml Output Total 300 ml Balance 690 ml EFFIE OROPEZA MD Sep 12, 2019 15:05
[2019-09-12] MEDS: LATANOPROST 0.005% OPHTH SOLN 2.5 ML OU SCH (20:49)
[2019-09-12 22:00] VITALS: BP 138/70
[2019-09-13 06:00] VITALS: BP 140/70
[2019-09-13] MEDS: LEVOTHYROXINE 100MCG TABLET (0.1MG) PO SCH (06:11)
[2019-09-13 06:45] LABS: HEMATOCRIT 43.1 % (42.0-52.0); HEMOGLOBIN 14.5 g/dl (13.5-17.5); MEAN CORPUSCULAR HEMOGLOBIN 30.1 pg (27.0-33.0); MEAN CORPUSCULAR HGB CONC 33.6 g/dl (32.0-36.5); MEAN CORPUSCULAR VOLUME 89.4 fl (80.0-96.0); PLATELET COUNT, AUTOMATED 185 10^3/uL (150-450); RED BLOOD COUNT 4.82 10^6/uL (4.30-6.10); WHITE BLOOD COUNT 16.9 10^3/uL (4.0-10.0)
[2019-09-13 07:13] LABS: BLOOD UREA NITROGEN 24 MG/DL (7-18); CALCIUM LEVEL 8.3 MG/DL (8.8-10.2); CARBON DIOXIDE LEVEL 28 MEQ/L (21-32); CHLORIDE LEVEL 110 MEQ/L (98-107); CREATININE FOR GFR 1.11 MG/DL (0.70-1.30); GLOMERULAR FILTRATION RATE > 60.0 (>35); GLUCOSE, FASTING 99 MG/DL (70-100); POTASSIUM SERUM 4.1 MEQ/L (3.5-5.1); SODIUM LEVEL 143 MEQ/L (136-145)
[2019-09-13] MEDS: predniSONE 50 MG TAB PO SCH (10:00)
[2019-09-13] MEDS: ATORVASTATIN 10 MG TAB PO SCH (10:00)
[2019-09-13] MEDS: HEPARIN SOD (PORCINE) 5000 UNITS/ML VIAL (J1644 PER 1000UNITS) SC SCH ×2 (10:00→20:46)
[2019-09-13] MEDS: CO-ENZYME Q10 50 MG CAP PO SCH (10:01)
[2019-09-13] MEDS: BRIMONIDINE 0.1% OPHTH SOLN 5 ML OU SCH ×2 (10:03→20:46)
[2019-09-13] MEDS: METOPROLOL SUCC *XL* 25MG TAB (TopROL *XL*) PO SCH (10:03)
[2019-09-13] MEDS: MECLIZINE 12.5 MG TAB PO PRN (10:12)
--- NOTE | 2019-09-13 12:47 | IPNPDOC ---
Date Seen The patient was seen on 09/13/19. Progress Note SUBJECTIVE: 89 y.o male w/ PMH of Bladder cancer, CKD, HTN & HLD is admitted for persistent vertigo. He has had similar episodes in the past but this has been the longest and severest episode. He has had slight improvement since yesterday, continues to have difficulty with ambulation due to dizziness, no other complaints. 10 point review of system is negative except for above. OBJECTIVE PHYSICAL EXAMINATION: VITAL SIGNS: Please see below. GENERAL: No distress HEENT: moist mucus membranes CARDIOVASCULAR: S1, S2, no murmurs RESPIRATORY: Clear to auscultation ABDOMINAL: Soft, non-tender, non-distended, +BS EXTREMITIES: ROM intact NEUROLOGICAL: No focal deficits, lateral nystagmus present PSYCHOLOGICAL: Calm LABORATORY DATA, IMAGING STUDIES, MICROBIOLOGY: Please see below. ASSESSMENT AND PLAN: 89 y.o male w/ multiple medical comorbidities is admitted for severe vertigo. PROBLEMS: 1. Vertigo: Brain imaging negative, discussed with Neurologist (Dr. Menard), continue prednisone 50 mg daily, continue vestibular therapy, supportive care for symptom control and outpatient follow up w/ Neurology. 2. HTN: continue Metoprolol 3. Hypothyroidism: continue Levothyroxine 4. HLD: continue atorvastatin DVT Prophylaxis: Heparin SubQ GI Prophylaxis: Not needed VS, I&O, 24H, Fishbone Vital Signs/I&O Vital Signs Date Time Temp Pulse Resp B/P (MAP) Pulse Ox O2 Delivery O2 Flow Rate FiO2 09/13/19 10:03 61 140/72 09/13/19 06:00 98.2 18 96 09/12/19 14:00 Room Air I&O- Last 24 Hours up to 6 AM 09/13/19 06:00 Intake Total 1020 ml Output Total 450 ml Balance 570 ml Laboratory Data 24H LABS Laboratory Tests 2 09/13/19 06:17: Nucleated Red Blood Cells % (auto) 0.0, Anion Gap 5L, Glomerular Filtration Rate > 60.0, Calcium Level 8.3L CBC/BMP Laboratory Tests 09/13/19 06:17 EFFIE OROPEZA MD Sep 13, 2019 12:47
[2019-09-13 14:00] VITALS: BP 157/73
[2019-09-13] MEDS: LATANOPROST 0.005% OPHTH SOLN 2.5 ML OU SCH (20:46)
[2019-09-13 22:00] VITALS: BP 140/68
[2019-09-14 05:48] LABS: HEMATOCRIT 41.7 % (42.0-52.0); MEAN CORPUSCULAR HEMOGLOBIN 30.2 pg (27.0-33.0); MEAN CORPUSCULAR HGB CONC 33.6 g/dl (32.0-36.5); MEAN CORPUSCULAR VOLUME 89.9 fl (80.0-96.0); PLATELET COUNT, AUTOMATED 172 10^3/uL (150-450); RED BLOOD COUNT 4.64 10^6/uL (4.30-6.10); WHITE BLOOD COUNT 15.3 10^3/uL (4.0-10.0)
[2019-09-14] MEDS: LEVOTHYROXINE 100MCG TABLET (0.1MG) PO SCH (05:51)
[2019-09-14 06:00] VITALS: BP 138/66
[2019-09-14 06:20] LABS: BLOOD UREA NITROGEN 23 MG/DL (7-18); CALCIUM LEVEL 8.5 MG/DL (8.8-10.2); CARBON DIOXIDE LEVEL 29 MEQ/L (21-32); CHLORIDE LEVEL 111 MEQ/L (98-107); CREATININE FOR GFR 1.09 MG/DL (0.70-1.30); GLOMERULAR FILTRATION RATE > 60.0 (>35); GLUCOSE, FASTING 88 MG/DL (70-100); MAGNESIUM LEVEL 2.2 MG/DL (1.8-2.4); PHOSPHORUS LEVEL 3.1 MG/DL (2.5-4.9); POTASSIUM SERUM 4.3 MEQ/L (3.5-5.1); SODIUM LEVEL 143 MEQ/L (136-145)
[2019-09-14] MEDS: predniSONE 50 MG TAB PO SCH (09:08)
[2019-09-14] MEDS: CO-ENZYME Q10 50 MG CAP PO SCH (09:08)
[2019-09-14] MEDS: HEPARIN SOD (PORCINE) 5000 UNITS/ML VIAL (J1644 PER 1000UNITS) SC SCH ×2 (09:08→20:49)
[2019-09-14] MEDS: ATORVASTATIN 10 MG TAB PO SCH (09:09)
[2019-09-14] MEDS: METOPROLOL SUCC *XL* 25MG TAB (TopROL *XL*) PO SCH (09:12)
[2019-09-14] MEDS: BRIMONIDINE 0.1% OPHTH SOLN 5 ML OU SCH ×2 (09:13→20:49)
[2019-09-14 14:00] VITALS: BP 140/62
--- NOTE | 2019-09-14 14:31 | IPNPDOC ---
Date Seen The patient was seen on 09/14/19. Progress Note SUBJECTIVE: 89 y.o male w/ PMH of Bladder cancer, CKD, HTN & HLD is admitted for persistent vertigo. He feels much better today, has had significant improvement with reintroduction of steroids, continues to have dizziness with ambulation. He has no other complaints at this time, denies any shortness of breath, chest pain, nausea, vomiting, abdominal pain or diarrhea. 10 point review of system is negative except for above. OBJECTIVE PHYSICAL EXAMINATION: VITAL SIGNS: Please see below. GENERAL: No distress HEENT: moist mucus membranes CARDIOVASCULAR: S1, S2, no murmurs RESPIRATORY: Clear to auscultation ABDOMINAL: Soft, non-tender, non-distended, +BS EXTREMITIES: ROM intact NEUROLOGICAL: No focal deficits, lateral nystagmus present PSYCHOLOGICAL: Calm LABORATORY DATA, IMAGING STUDIES, MICROBIOLOGY: Please see below. ASSESSMENT AND PLAN: 89 y.o male w/ multiple medical comorbidities is admitted for severe vertigo. PROBLEMS: 1. Vertigo: Brain imaging negative, discussed with Neurologist (Dr. Menard), continue prednisone 50 mg daily, continue vestibular therapy, supportive care for symptom control and outpatient follow up w/ Neurology. PT evaluation appreciated, patient will require rehabilitation, awaiting placement, likely Monday. 2. HTN: continue Metoprolol 3. Hypothyroidism: continue Levothyroxine 4. HLD: continue atorvastatin DVT Prophylaxis: Heparin SubQ GI Prophylaxis: Not needed VS, I&O, 24H, Fishbone Vital Signs/I&O Vital Signs Date Time Temp Pulse Resp B/P (MAP) Pulse Ox O2 Delivery O2 Flow Rate FiO2 09/14/19 09:12 74 150/60 09/14/19 06:00 98.2 19 97 Room Air I&O- Last 24 Hours up to 6 AM 09/14/19 06:00 Intake Total 1020 ml Output Total 625 ml Balance 395 ml Laboratory Data 24H LABS Laboratory Tests 2 09/14/19 05:20: Nucleated Red Blood Cells % (auto) 0.0, Anion Gap 3L, Glomerular Filtration Rate > 60.0, Calcium Level 8.5L, Phosphorus Level 3.1, Magnesium Level 2.2 CBC/BMP Laboratory Tests 09/14/19 05:20 EFFIE OROPEZA MD Sep 14, 2019 14:31
[2019-09-14] MEDS: LATANOPROST 0.005% OPHTH SOLN 2.5 ML OU SCH (20:50)
[2019-09-14 22:00] VITALS: BP 148/72
[2019-09-15] MEDS: LEVOTHYROXINE 100MCG TABLET (0.1MG) PO SCH (05:29)
[2019-09-15 06:00] VITALS: BP 142/68
[2019-09-15] MEDS: predniSONE 50 MG TAB PO SCH (09:24)
[2019-09-15] MEDS: CO-ENZYME Q10 50 MG CAP PO SCH (09:24)
[2019-09-15] MEDS: ATORVASTATIN 10 MG TAB PO SCH (09:24)
[2019-09-15] MEDS: HEPARIN SOD (PORCINE) 5000 UNITS/ML VIAL (J1644 PER 1000UNITS) SC SCH ×2 (09:25→20:22)
[2019-09-15] MEDS: METOPROLOL SUCC *XL* 25MG TAB (TopROL *XL*) PO SCH (09:31)
[2019-09-15] MEDS: BRIMONIDINE 0.1% OPHTH SOLN 5 ML OU SCH ×2 (09:32→20:22)
[2019-09-15] MEDS: MECLIZINE 12.5 MG TAB PO PRN ×2 (11:40→11:42)
[2019-09-15 14:00] VITALS: BP 122/58
[2019-09-15] MEDS: LATANOPROST 0.005% OPHTH SOLN 2.5 ML OU SCH (20:22)
[2019-09-15 22:00] VITALS: BP 134/66
--- NOTE | 2019-09-15 22:14 | IPNPDOC ---
Date Seen The patient was seen on 09/15/19. Progress Note SUBJECTIVE: 89 y.o male w/ PMH of Bladder cancer, CKD, HTN & HLD is admitted for persistent vertigo. He is unchanged from yesterday, no acute events overnight, asymptomatic in bed but reports dizziness with ambulation. He has no other complaints at this time, denies any shortness of breath, chest pain, nausea, vomiting, abdominal pain or diarrhea. 10 point review of system is negative except for above. OBJECTIVE PHYSICAL EXAMINATION: VITAL SIGNS: Please see below. GENERAL: No distress HEENT: moist mucus membranes CARDIOVASCULAR: S1, S2, no murmurs RESPIRATORY: Clear to auscultation ABDOMINAL: Soft, non-tender, non-distended, +BS EXTREMITIES: ROM intact NEUROLOGICAL: No focal deficits PSYCHOLOGICAL: Calm LABORATORY DATA, IMAGING STUDIES, MICROBIOLOGY: Please see below. ASSESSMENT AND PLAN: 89 y.o male w/ multiple medical comorbidities is admitted for severe vertigo. PROBLEMS: 1. Vertigo: Brain imaging negative, discussed with Neurologist (Dr. Menard), continue prednisone 50 mg daily, continue vestibular therapy, supportive care for symptom control and outpatient follow up w/ Neurology. PT evaluation appreciated, patient will require rehabilitation, awaiting placement, likely Monday. 2. HTN: continue Metoprolol 3. Hypothyroidism: continue Levothyroxine 4. HLD: continue atorvastatin DVT Prophylaxis: Heparin SubQ GI Prophylaxis: Not needed VS, I&O, 24H, Fishbone Vital Signs/I&O Vital Signs Date Time Temp Pulse Resp B/P (MAP) Pulse Ox O2 Delivery O2 Flow Rate FiO2 09/15/19 14:00 98.0 68 18 122/58 (79) 95 Room Air I&O- Last 24 Hours up to 6 AM 09/15/19 06:00 Intake Total 1200 ml Output Total 800 ml Balance 400 ml EFFIE OROPEZA MD Sep 15, 2019 22:14
[2019-09-16 05:34] LABS: HEMATOCRIT 43.7 % (42.0-52.0); MEAN CORPUSCULAR HEMOGLOBIN 30.7 pg (27.0-33.0); MEAN CORPUSCULAR HGB CONC 34.3 g/dl (32.0-36.5); MEAN CORPUSCULAR VOLUME 89.4 fl (80.0-96.0); PLATELET COUNT, AUTOMATED 197 10^3/uL (150-450); RED BLOOD COUNT 4.89 10^6/uL (4.30-6.10); WHITE BLOOD COUNT 15.9 10^3/uL (4.0-10.0)
[2019-09-16 06:00] VITALS: BP 152/88
[2019-09-16 06:00] LABS: BLOOD UREA NITROGEN 27 MG/DL (7-18); CALCIUM LEVEL 8.4 MG/DL (8.8-10.2); CARBON DIOXIDE LEVEL 28 MEQ/L (21-32); CHLORIDE LEVEL 106 MEQ/L (98-107); CREATININE FOR GFR 1.07 MG/DL (0.70-1.30); GLOMERULAR FILTRATION RATE > 60.0 (>35); GLUCOSE, FASTING 98 MG/DL (70-100); POTASSIUM SERUM 4.3 MEQ/L (3.5-5.1); SODIUM LEVEL 141 MEQ/L (136-145)
[2019-09-16] MEDS: LEVOTHYROXINE 100MCG TABLET (0.1MG) PO SCH (06:18)
[2019-09-16] MEDS: predniSONE 50 MG TAB PO SCH (08:22)
[2019-09-16] MEDS: ATORVASTATIN 10 MG TAB PO SCH (08:22)
[2019-09-16 08:23] VITALS: BP 148/72
[2019-09-16] MEDS: HEPARIN SOD (PORCINE) 5000 UNITS/ML VIAL (J1644 PER 1000UNITS) SC SCH (08:23)
[2019-09-16] MEDS: METOPROLOL SUCC *XL* 25MG TAB (TopROL *XL*) PO SCH (08:23)
[2019-09-16] MEDS: CO-ENZYME Q10 50 MG CAP PO SCH (08:23)
[2019-09-16] MEDS: BRIMONIDINE 0.1% OPHTH SOLN 5 ML OU SCH (08:25)
[2019-09-16] MEDS ORDERED: MECL12.589 PO (12:42)
--- NOTE | 2019-09-16 14:59 | DS.PDOC ---
Discharge Summary General Date of Admission Sep 09, 2019 at 21:49 Date of Discharge 09/16/19 Attending Physician: EFFIE OROPEZA MD Discharge Summary PROCEDURES PERFORMED DURING STAY: None. ADMITTING DIAGNOSES: 1. Vertigo. DISCHARGE DIAGNOSES: 1. Vertigo. COMPLICATIONS/CHIEF COMPLAINT: Dizziness. HISTORY OF PRESENT ILLNESS: 89-year-old male with past medical history of hypert ension and congestive heart failure, was admitted for vertigo. Patient was treated with supportive care along with vestibular therapy. There was concern for possible vestibular neuritis and patient was treated with a few days of high-dose prednisone. Patient had significant clinical improvement throughout hospitalization, continues to have dizziness/vertigo with activity, asymptomatic at rest. Patient has been making gradual improvement, rehabilitation was recommended by physical therapy and patient will be discharged to acute rehabilitation unit later today to continue therapy prior to discharge home. Patient will be discharged on as needed meclizine for symptomatic management, no further need for steroids at this time. Patient is advised to follow-up with PCP after discharge from acute rehabilitation unit. Patient's neurological workup was negative for any acute pathology. HOSPITAL COURSE: As above. DISCHARGE MEDICATIONS: Please see below. ALLERGIES: Please see below. OBJECTIVE PHYSICAL EXAMINATION: VITAL SIGNS: Please see below. GENERAL: No distress HEENT: moist mucus membranes CARDIOVASCULAR: S1, S2, no murmurs RESPIRATORY: Clear to auscultation ABDOMINAL: Soft, non-tender, non-distended, +BS EXTREMITIES: ROM intact NEUROLOGICAL: No focal deficits PSYCHOLOGICAL: Calm LABORATORY DATA: Please see below. IMAGING: MRI/MRA head negative for acute pathology PROGNOSIS: Fair ACTIVITY: As tolerated. DIET: Cardiac DISCHARGE PLAN: Follow with PCP after discharge from acute rehabilitation unit DISPOSITION: 62 D/T Rehab Facility. DISCHARGE INSTRUCTIONS: 1. As above. DISCHARGE CONDITION: Stable. TIME SPENT ON DISCHARGE: Greater than 27 minutes. Vital Signs/I&Os Vital Signs Date Time Temp Pulse Resp B/P (MAP) Pulse Ox O2 Delivery O2 Flow Rate FiO2 09/16/19 08:23 64 148/72 09/16/19 06:00 97.8 18 98 Room Air I&O- Last 24 Hours up to 6 AM 09/16/19 06:00 Intake Total 1490 ml Output Total 1150 ml Balance 340 ml Laboratory Data Labs 24H Laboratory Tests 2 09/16/19 05:06: Nucleated Red Blood Cells % (auto) 0.0, Anion Gap 7L, Glomerular Filtration Rate > 60.0, Calcium Level 8.4L CBC/BMP Laboratory Tests 09/16/19 05:06 Discharge Medications Scheduled Atorvastatin Calcium (Lipitor) 10 Mg Tab, 10 MG PO DAILY, (Reported) Bimatoprost ([place]) 50 Drop/2.5 Ml [place], 1 DROP OU QHS, (Reported) Brimonidine Tartrate (Alphagan P) 100 Drop/5 Ml Soln, 1 DROP OU BID, (Reported) Gluc Zuleta/Chondro Zule[place] A/Vit C/Mn (Glucosamine Chondroitin Tab) 1 Each Tablet, 1 TAB PO BID, (Reported) Metoprolol Succinate (Metoprolol Succinate) 25 Mg Tab.er.24h, 12.5 MG PO DAILY, (Reported) Multivitamins (Thera M Plus Tablet) 1 Each Tablet, 1 TAB PO DAILY, (Reported) [place]-3 Fatty Acids/Fish Oil (Fish Oil 1,000 mg Capsule) 1 Each Capsule, 1,000 MG PO DAILY, (Reported) Ubidecarenone (Coenzyme Q10) 200 Mg Cap, 200 MG PO DAILY, (Reported) Scheduled PRN Meclizine HCl (Meclizine HCl) 12.5 Mg Tablet, 12.5 MG PO Q8HP PRN for DIZZINESS Mometasone Furoate Monohydrate (Nasonex) 120 [place]/17 Gm Naspr, 2 SPRAY NA DAILY PRN for NASAL CONGESTION, (Reported) Sodium Chloride ([place]) 104 Ml [place], 1 SPRAY NA QID PRN for NASAL DRYNESS, (Reported) Allergies Coded Allergies: lactose (Verified Adverse Reaction, Intermediate, 09/09/19) EFFIE OROPEZA MD Sep 16, 2019 14:59
== END 2019-09-16 13:45 | DRG 149 ==
LOC: M ED 17:26 → EDBD 17:26 → M ED INP 21:49 → ENRESERVTM 23:09 → ENRESERVDT 23:09 → M MSPAV 09-10 00:18
PROVIDERS: ADMIT Internal Medicine; ATTEND Internal Medicine
DX: H81.20 Vestibular neuronitis, unspecified ear (principal); E78.00 Pure hypercholesterolemia, unspecified; N18.3 Chronic kidney disease, stage 3 (moderate); E03.9 Hypothyroidism, unspecified; J30.9 Allergic rhinitis, unspecified; M16.12 Unilateral primary osteoarthritis, left hip; H40.9 Unspecified glaucoma; I35.8 Other nonrheumatic aortic valve disorders; E73.9 Lactose intolerance, unspecified; Z90.49 Acquired absence of other specified parts of digestive tract; Z85.51 Personal history of malignant neoplasm of bladder; Z86.15 Personal history of latent tuberculosis infection; Z98.41 Cataract extraction status, right eye; Z98.42 Cataract extraction status, left eye; Z90.5 Acquired absence of kidney; Z87.891 Personal history of nicotine dependence; Z79.899 Other long term (current) drug therapy

== ENCOUNTER 2019-09-16 12:40 | Inpatient (IN) | payer MEDICARE, OTHER ==
[~2019-09-16] VITALS: Ht 182.9 cm; Wt 83.0 kg
[~2019-09-16 12:40] MED LIST changes: +GLUCTAB6 PO; +METO1TAB32 PO; +OCEA0.654; +VITMTA PO
[2019-09-16] MEDS ORDERED: MECL12.589 PO (12:42)
[2019-09-16 14:00] VITALS: BP 146/70
[2019-09-16] MEDS ORDERED: BISACODYL 10 MG SUPP PR PRN (14:00)
[2019-09-16] MEDS ORDERED: ONDANSETRON 4 MG TAB PO PRN (14:00)
--- NOTE | 2019-09-16 14:58 | HPEPDOC ---
[facility] Nurse Note DATE OF ADMISSION: 09-16-19 DATE OF SERVICE: 09-16-19 TIME OF ADMISSION: Please refer to physician's admission order. SOURCE OF ADMISSION INFORMATION: [facility] record and patient CHIEF COMPLAINT: vestibular neuritis HISTORY OF PRESENT ILLNESS: 89M pmh HLD, HTN, hypothyroidism, bladder cancer, aortic valve disease presented to [facility] ED on 09-09-19 complaining of dizziness and difficulty walking with nausea and vomiting. CTH did not show acute intracranial pathology, MRA did not show significant occlusions or aneurysms, and MRI brain was also negative. He was found to have mild leukocytosis and started on oral prednisone for what was ultimately deemed to be vestibular neuritis. His dizziness modestly improved, however he had persistent impairments in mobility and ADL management below his prior level of function and deemed medically appropriate for discharge to ARU on 09-16-19. On inital eval patient reports he had been treated for a sinus infection just prior to the onset of his dizziness symptoms. He states he is still dizzy, but it is manageable and does not want to continue with meclizine as he thinks it makes him feel off. REVIEW OF SYSTEMS: The following is a completed review of systems and has been reviewed. Review of systems otherwise unremarkable. PAIN: Patient self reports no pain EYES: No recent vision changes EARS, NOSE, & THROAT: No throat pain, or dysphagia, or rhinorrhea CARDIOVASCULAR: Denies chest pain or palpitations PULMONARY: Denies shortness of breath GASTROINTESTINAL: Denies constipation/diarrhea GENITOURINARY: denies dysuria MUSCULOSKELETAL: generalized weakness NEUROLOGICAL:+vertigo HEMATOLOGICAL: denies easy bruising SKIN: no rash PSYCHIATRIC: Unremarkable All other review of systems found to be negative. PAST MEDICAL HISTORY: as per HPI PAST SURGICAL HISTORY: Appendectomy, left upper lung lobectomy with thoracoplasty 1952 (hx of TB), vasectomy, multiple cystoscopies with TURP, bilateral cataract ALLERGIES: Please see below. MEDICATIONS: Please see below. FAMILY HISTORY: Heart disease, cancer, CVA SOCIAL HISTORY: Ex smoker, rare ETOH, no illicit drugs use DIET: 2g sodium PHYSICAL EXAMINATION: VITAL SIGNS: Please see below. GENERAL: Pleasant and cooperative. No acute distress. HEENT: PERRL. Extraocular movements intact. Clear conjunctiva CARDIOVASCULAR: Regular rate and rhythm. +systolic murmurs, rubs, or gallops LUNGS: Clear to auscultation bilaterally. No wheezes. No rhonchi ABDOMEN: Soft, nontender, nondistended. Positive bowel sounds. Normal active bowel sounds NEUROLOGICAL: Alert and oriented times three. Cranial nerves II through XII grossly intact. Sensation grossly intact +horizontal nystagmus with leftward gaze >right (-) dysmetria (-) babinksi/clonus EXTREMITIES: 5\5 strength bilateral upper extremities. 5\5 strength right lower extremity. 5/5 strength in left lower extremity. SKIN: intact LABORATORY DATA: Please see below. IMAGING:Imaging documentation personally reviewed by record FUNCTIONAL STATUS: Premorbid: Independent with all activities of daily life as well as mobility On Admission:contact guard-min assist for functional transfers, ambulating, dressing, toileting GOALS: Mod-I ambulating community distances, stairs, dressing, cooking tasks, bathing, toileting, medical optimization, assess for DME needs ASSESSMENT:89-year-old M with past medical history of HLD, HTN who presents status post acute onset dizziness due to vestibular neuritis PLAN: 1. Rehab- PT/OT advance gait and ADL training, strengthen/stretch/maintain ROM all 4 limbs, vestibular therapy 2. Neuro-patient with notable gait and mobility impairment due to vestibular neuritis, s/p steroid treatment, c/u Zofran prn 3. Cardiac: hx of HTN c/u beta-mina, 2gm sodium restrict -hx of diastolic CHF, daily weights, fluid restrict, monitor for fluid overload -medicine consulted to assist in overall management 4. Resp: encourage incentive spirometry, monitor for infection 5. Endo: hx of hypothyroidism, c/u Synthroid 6. DVT ppx: heparin and teds 7. GI ppx: Protonix 40mg daily 8. pain: Tylenol prn 9. Dispo: TBD POST ADMISSION PHYSICIAN EVALUATION: Medical and functional status: Description of medical status, medical assessment: As above. Rehabilitation diagnosis and current and prior cold morbid medical conditions as above. Risk of complications and plans to mitigate them as above. Description of functional status current status is as above. Prior status as above. Status compared to preadmission: There are no clinically significant differences between the patient's current status and the information described on the preadmission screening document. Treatment plan anticipated: Treatment plan is as described above. Required disciplines including physical therapy, occupational therapy, others as noted above. Intensity of services: 3 hours a day, 6 days a week. Special considerations: There are no specific special or safety considerations that would likely preclude immediate implementation of an intensive rehabilitation program or subsequently influence the plan of care. ATTESTATION: Considering all the information above, it is my best judgment that this patient requires intensive rehabilitation therapy as described above and an inpatient hospital environment due to the complexity of nursing, medical, and rehabilitation needs required by the patient. Furthermore, this patient can reasonably be expected to participate in an benefit from an inpatient rehabilitation stay with an interdisciplinary team approach to the delivery of rehabilitation care under the direction and supervision of rehabilitation physician. PROGNOSIS: Excellent ESTIMATED LENGTH OF STAY:7-10 days. PROJECTED DISCHARGE DESTINATION: Home with family support and any durable medical equipment required to increase functional safety and mobility. TIME SPENT COUNSELING AND COORDINATING INITIAL CARE: Greater than 70 minutes. Vital Signs Vital Sign - Last 24 Hours 09/16/19 14:00 Temp 98.8 Pulse 83 Resp 18 B/P (MAP) 146/70 (95) Pulse Ox 96 O2 Delivery Room Air Home Medications Scheduled Atorvastatin Calcium (Lipitor) 10 Mg Tab, 10 MG PO DAILY, (Reported) Bimatoprost (Lumigan) 50 Drop/2.5 Ml [place], 1 DROP OU QHS, (Reported) Brimonidine Tartrate (Alphagan P) 100 Drop/5 Ml Soln, 1 DROP OU BID, (Reported) Gluc [place]ule[place]/Chondro Zuleta A/Vit C/Mn (Glucosamine Chondroitin Tab) 1 Each Tablet, 1 TAB PO BID, (Reported) Metoprolol Succinate (Metoprolol Succinate) 25 Mg Tab.er.24h, 12.5 MG PO DAILY, (Reported) Multivitamins (Thera M Plus Tablet) 1 Each Tablet, 1 TAB PO DAILY, (Reported) [place]-3 Fatty Acids/Fish Oil (Fish Oil 1,000 mg Capsule) 1 Each Capsule, 1,000 MG PO DAILY, (Reported) Ubidecarenone (Coenzyme Q10) 200 Mg Cap, 200 MG PO DAILY, (Reported) Scheduled PRN Meclizine HCl (Meclizine HCl) 12.5 Mg Tablet, 12.5 MG PO Q8HP PRN for DIZZINESS Mometasone Furoate Monohydrate (Nasonex) 120 [place]/17 Gm Naspr, 2 SPRAY NA DAILY PRN for NASAL CONGESTION, (Reported) Sodium Chloride ([place]) 104 Ml [place], 1 SPRAY NA QID PRN for NASAL DRYNESS, (Reported) Allergies Coded Allergies: lactose (Verified Adverse Reaction, Intermediate, 09/09/19) A-FIB/CHADSVASC A-FIB History Current/History of A-Fib/PAF?: No CHRISTIAN MONAHAN MD Sep 16, 2019 14:58
--- NOTE | 2019-09-16 15:23 | IPNPDOC ---
Date Seen The patient was seen on 09/16/19. Progress Note SUBJECTIVE: 89 y.o male w/ PMH of Bladder cancer, CKD, HTN & HLD was admitted for vertigo, possibly due to vestibular neuritis. Patient was treated with steroids, supportive care and vestibular therapy. Patient has significant clinical improvement through hospitalization, rehabilitation was recommended by PT and patient has been discharged to acute rehabilitation unit today. Patient is doing well, without any complaints, asymptomatic at rest, continues to have significant limitations to mobility due to dizziness/vertigo. He denies any shortness of breath, chest pain, nausea, vomiting, abdominal pain or diarrhea. 10 point review of system is negative except for above. OBJECTIVE PHYSICAL EXAMINATION: VITAL SIGNS: Please see below. GENERAL: No distress HEENT: moist mucus membranes CARDIOVASCULAR: S1, S2, no murmurs RESPIRATORY: Clear to auscultation ABDOMINAL: Soft, non-tender, non-distended, +BS EXTREMITIES: ROM intact NEUROLOGICAL: No focal deficits PSYCHOLOGICAL: Calm LABORATORY DATA, IMAGING STUDIES, MICROBIOLOGY: Please see below. ASSESSMENT AND PLAN: 89 y.o male w/ multiple medical comorbidities, was admitted to the inpatient side for vertigo, possibly due to vestibular neuritis now admitted to acute rehabilitation unit. PROBLEMS: 1. Vertigo: Possibly due to vestibular neuritis, being treated with steroids, supportive care, neurological workup was negative, case was discussed by neurology with no further recommendations, continue meclizine as needed. Rehabilitation as per primary team 2. HTN: continue Metoprolol 3. Hypothyroidism: continue Levothyroxine 4. HLD: continue atorvastatin DVT Prophylaxis: Heparin SubQ GI Prophylaxis: PPI VS, I&O, 24H, Fishbone Vital Signs/I&O Vital Signs Date Time Temp Pulse Resp B/P (MAP) Pulse Ox O2 Delivery O2 Flow Rate FiO2 09/16/19 14:00 98.8 83 18 146/70 (95) 96 Room Air EFFIE OROPEZA MD Sep 16, 2019 15:22
[2019-09-16] MEDS ORDERED: MECLIZINE 12.5 MG TAB PO SCH (16:00)
[2019-09-16] MEDS: SODIUM CHLORIDE NASAL 0.65% SPRAY BTL (OCEAN) SCH ×2 (16:00→20:56)
[2019-09-16] MEDS: REMEDY PHYTOPLEX Z-GUARD PASTE 113GM TUBE (FROM STOREROOM PRODUCT) TOP SCH ×2 (16:00→21:01)
[2019-09-16] MEDS ORDERED: traZODone 25MG PER 1/2 TABLET PO PRN (16:15)
[2019-09-16 20:00] VITALS: BP 144/78
[2019-09-16] MEDS: BRIMONIDINE 0.1% OPHTH SOLN 5 ML OU SCH (20:55)
[2019-09-16] MEDS: DOCUSATE SODIUM 100 MG CAP PO SCH (20:55)
[2019-09-16] MEDS: PANTOPRAZOLE 40MG TAB (PROTONIX) PO SCH (20:55)
[2019-09-16] MEDS: SENNA 8.6 MG TAB (SENOKOT) PO SCH (20:55)
[2019-09-16] MEDS: HEPARIN SOD (PORCINE) 5000UNITS/ML VIAL (J1644 PER 1000UNITS) SC SCH (20:55)
[2019-09-16] MEDS: FLUTICASONE PROP 0.05% NASAL SPRAY 16 GM (FLONASE) NARES SCH (20:56)
[2019-09-16] MEDS: LATANOPROST 0.005% OPHTH SOLN 2.5 ML OU SCH (20:56)
[2019-09-17 06:00] VITALS: BP 158/85
[2019-09-17] MEDS: LEVOTHYROXINE 100MCG TABLET (0.1MG) PO SCH (06:06)
[2019-09-17 06:31] LABS: BASO # 0.1 10^3/uL (0.0-0.2); BASO % 0.4 % (0.0-1.0); EOS % 0.2 % (0.0-3.0); HEMATOCRIT 44.6 % (42.0-52.0); HEMOGLOBIN 14.8 g/dl (13.5-17.5); LYMPH # 3.4 10^3/uL (1.5-5.0); LYMPH % 18.2 % (24.0-44.0); MEAN CORPUSCULAR HGB CONC 33.2 g/dl (32.0-36.5); MEAN CORPUSCULAR VOLUME 90.3 fl (80.0-96.0); MONO # 1.7 10^3/uL (0.0-0.8); NEUTROPHILS # 12.9 10^3/uL (1.5-8.5); NEUTROPHILS % 69.2 % (36.0-66.0); PLATELET COUNT, AUTOMATED 193 10^3/uL (150-450); RED BLOOD COUNT 4.94 10^6/uL (4.30-6.10); WHITE BLOOD COUNT 18.6 10^3/uL (4.0-10.0)
[2019-09-17 07:05] LABS: ALBUMIN 2.9 GM/DL (3.2-5.2); ALT/SGPT 63 U/L (12-78); BILIRUBIN,TOTAL 0.6 MG/DL (0.2-1.0); BLOOD UREA NITROGEN 29 MG/DL (7-18); CALCIUM LEVEL 8.7 MG/DL (8.8-10.2); CARBON DIOXIDE LEVEL 29 MEQ/L (21-32); CHLORIDE LEVEL 106 MEQ/L (98-107); CREATININE FOR GFR 1.11 MG/DL (0.70-1.30); GLOMERULAR FILTRATION RATE > 60.0 (>35); GLUCOSE, FASTING 86 MG/DL (70-100); POTASSIUM SERUM 4.4 MEQ/L (3.5-5.1); SODIUM LEVEL 140 MEQ/L (136-145); TOTAL PROTEIN 6.3 GM/DL (6.4-8.2)
[2019-09-17] MEDS: CO-ENZYME Q10 50 MG CAP PO SCH (08:47)
[2019-09-17] MEDS: PANTOPRAZOLE 40MG TAB (PROTONIX) PO SCH (08:47)
[2019-09-17] MEDS: ATORVASTATIN 10 MG TAB PO SCH (08:48)
[2019-09-17] MEDS: DOCUSATE SODIUM 100 MG CAP PO SCH ×2 (08:48→20:41)
[2019-09-17] MEDS: HEPARIN SOD (PORCINE) 5000UNITS/ML VIAL (J1644 PER 1000UNITS) SC SCH ×2 (08:48→20:41)
[2019-09-17] MEDS: BRIMONIDINE 0.1% OPHTH SOLN 5 ML OU SCH ×2 (08:49→20:42)
[2019-09-17] MEDS: SODIUM CHLORIDE NASAL 0.65% SPRAY BTL (OCEAN) SCH ×3 (08:50→20:41)
[2019-09-17] MEDS: METOPROLOL SUCC *XL* 12.5MG PER 1/2 TAB (TopROL *XL*) PO SCH (08:52)
[2019-09-17] MEDS: REMEDY PHYTOPLEX Z-GUARD PASTE 113GM TUBE (FROM STOREROOM PRODUCT) TOP SCH ×3 (08:52→20:42)
[2019-09-17] MEDS: FLUTICASONE PROP 0.05% NASAL SPRAY 16 GM (FLONASE) NARES SCH ×2 (08:52→20:42)
[2019-09-17] MEDS ORDERED: predniSONE 50 MG TAB PO SCH (09:00)
[2019-09-17 13:36] VITALS: BP 115/60
--- NOTE | 2019-09-17 15:03 | IPNPDOC ---
PM&R Progress Note DATE OF SERVICE: Sep 17, 2019 [employer] Progress Note Subjective: Patient reporting he is still dizzy, but can work through it. He states he is veering to the left a little. He states he did not sleep well last night. REVIEW OF SYSTEMS: The following is a completed review of systems and has been reviewed. Review of systems otherwise unremarkable. PAIN: Patient self reports no pain EYES: No recent vision changes EARS, NOSE, & THROAT: No throat pain, or dysphagia, or rhinorrhea CARDIOVASCULAR: Denies chest pain or palpitations PULMONARY: Denies shortness of breath GASTROINTESTINAL: Denies constipation/diarrhea GENITOURINARY: denies dysuria MUSCULOSKELETAL: generalized weakness NEUROLOGICAL:+vertigo HEMATOLOGICAL: denies easy bruising SKIN: no rash PSYCHIATRIC: Unremarkable All other review of systems found to be negative. PHYSICAL EXAMINATION: VITAL SIGNS: Please see below. GENERAL: Pleasant and cooperative. No acute distress. HEENT: PERRL. Extraocular movements intact. Clear conjunctiva CARDIOVASCULAR: Regular rate and rhythm. +systolic murmurs, rubs, or gallops LUNGS: Clear to auscultation bilaterally. No wheezes. No rhonchi ABDOMEN: Soft, nontender, nondistended. Positive bowel sounds. Normal active bowel sounds NEUROLOGICAL: Alert and oriented times three. Cranial nerves II through XII grossly intact. Sensation grossly intact +horizontal nystagmus with leftward gaze >right (-) dysmetria (-) babinksi/clonus EXTREMITIES: 5\5 strength bilateral upper extremities. 5\5 strength right lower extremity. 5/5 strength in left lower extremity. SKIN: intact ASSESSMENT:89-year-old M with past medical history of HLD, HTN who presents status post acute onset dizziness due to vestibular neuritis PLAN: 1. Rehab- PT/OT advance gait and ADL training, strengthen/stretch/maintain ROM all 4 limbs, vestibular therapy-ambulating with RW 2. Neuro-patient with notable gait and mobility impairment due to vestibular neuritis, s/p steroid treatment, c/u Zofran prn 3. Cardiac: hx of HTN c/u beta-mina, 2gm sodium restrict -hx of diastolic CHF, daily weights, fluid restrict, monitor for fluid overload -medicine consulted to assist in overall management 4. Resp: encourage incentive spirometry, monitor for infection 5. Endo: hx of hypothyroidism, c/u Synthroid 6. DVT ppx: heparin and teds 7. GI ppx: Protonix 40mg daily 8. pain: Tylenol prn 9. Psycy: insomnia, will change trazodone to standing 9. Dispo: 09-26-19 to home or [facility] Allergies Coded Allergies: lactose (Verified Adverse Reaction, Intermediate, 09/09/19) Vital Signs Vital Signs Date Time Temp Pulse Resp B/P (MAP) Pulse Ox O2 Delivery O2 Flow Rate FiO2 09/17/19 13:36 96.7 61 18 115/60 (78) 96 Room Air Laboratory Data CBC/BMP Laboratory Tests 09/17/19 06:18 Labs 24H Laboratory Tests 2 09/17/19 06:18: Immature Granulocyte % (Auto) 3.0, Neutrophils (%) (Auto) 69.2H, Lymphocytes (%) (Auto) 18.2L, Monocytes (%) (Auto) 9.0H, Eosinophils (%) (Auto) 0.2, Basophils (%) (Auto) 0.4, Neutrophils # (Auto) 12.9H, Lymphocytes # (Auto) 3.4, Monocytes # (Auto) 1.7H, Eosinophils # (Auto) 0.0, Basophils # (Auto) 0.1, Nucleated Red Blood Cells % (auto) 0.0, Anion Gap 5L, Glomerular Filtration Rate > 60.0, Calcium Level 8.7L, Total Bilirubin 0.6, Aspartate Amino Transf (AST/SGOT) 28, Alanine Aminotransferase (ALT/SGPT) 63, Alkaline Phosphatase 87, Total Protein 6.3L, Albumin 2.9L, Albumin/Globulin Ratio 0.85L Current Medications Current Medications Current Medications Medications (Trade) Dose Ordered Sig/Zbigniew Route PRN Reason Start Time Stop Time Status Last Admin Dose Admin Acetaminophen (Tylenol Tab) 650 mg Q4HP PRN PO fever/MILD PAIN (PS 1-4) 09/16/19 14:00 Atorvastatin Calcium (Lipitor) 10 mg DAILY PO 09/17/19 09:00 09/17/19 08:48 Bisacodyl (Dulcolax Suppository) 10 mg DAILYPRN PRN [place] CONSTIPATION 09/16/19 14:00 Brimonidine Tartrate (Alphagan P 0.1%) 1 drop BID OU 09/16/19 21:00 09/17/19 08:49 Coenzyme Q10 (Coenzyme Q10) 200 mg DAILY PO 09/17/19 09:00 10/17/19 08:59 09/17/19 08:47 Docusate Sodium (Colace) 100 mg BID PO 09/16/19 21:00 09/17/19 08:48 Fluticasone Propionate (Flonase 0.05% Nasal [place]) 1 spray BID NARES 09/16/19 21:00 09/17/19 08:52 Heparin Sodium (Porcine) (Heparin) 5,000 units Q12H SC 09/16/19 21:00 09/17/19 08:48 Latanoprost (Xalatan 0.005% Op Soln) 1 drop QHS OU 09/16/19 21:00 09/16/19 20:56 Levothyroxine Sodium (Synthroid) 100 mcg DAILY@06 PO 09/17/19 06:00 09/17/19 06:06 Meclizine HCl (Antivert) 12.5 mg TID PO 09/16/19 16:00 09/16/19 16:02 DC Metoprolol Succinate (TopROL XL) 12.5 mg DAILY PO 09/17/19 09:00 09/17/19 08:52 Ondansetron HCl (Zofran) 4 mg Q6HP PRN PO NAUSEA/dizziness 09/16/19 14:00 Pantoprazole Sodium (Protonix) 40 mg BID PO 09/16/19 21:00 09/17/19 10:20 DC 09/17/19 08:47 Pantoprazole Sodium (Protonix) 40 mg DAILY PO 09/18/19 09:00 Prednisone (Deltasone) 50 mg DAILY PO 09/17/19 09:00 09/16/19 16:05 DC Senna (Senokot) 1 tab QHS PO 09/16/19 21:00 09/16/19 20:55 Sodium Chloride ([place] Nasal [place]) 2 spray TID NA 09/16/19 16:00 09/17/19 08:50 Trazodone HCl (Desyrel) 25 mg QHS PO 09/17/19 21:00 Trazodone HCl (Desyrel) 25 mg QHSP PRN PO INSOMNIA 09/16/19 16:15 09/17/19 14:47 CHRISTIAN ALDANA MD Sep 17, 2019 15:03
[2019-09-17] MEDS: SENNA 8.6 MG TAB (SENOKOT) PO SCH (20:41)
[2019-09-17] MEDS: traZODone 25MG PER 1/2 TABLET PO SCH (20:41)
[2019-09-17] MEDS: LATANOPROST 0.005% OPHTH SOLN 2.5 ML OU SCH (20:42)
[2019-09-17 22:00] VITALS: BP 129/66
[2019-09-18 06:00] VITALS: BP 147/71
[2019-09-18] MEDS: LEVOTHYROXINE 100MCG TABLET (0.1MG) PO SCH (06:20)
[2019-09-18 07:03] LABS: BASO # 0.1 10^3/uL (0.0-0.2); BASO % 0.7 % (0.0-1.0); EOS # 0.2 10^3/uL (0.0-0.5); EOS % 1.6 % (0.0-3.0); HEMATOCRIT 46.6 % (42.0-52.0); HEMOGLOBIN 15.5 g/dl (13.5-17.5); LYMPH # 4.3 10^3/uL (1.5-5.0); LYMPH % 29.2 % (24.0-44.0); MEAN CORPUSCULAR HEMOGLOBIN 30.6 pg (27.0-33.0); MEAN CORPUSCULAR HGB CONC 33.3 g/dl (32.0-36.5); MEAN CORPUSCULAR VOLUME 91.9 fl (80.0-96.0); MONO # 1.4 10^3/uL (0.0-0.8); MONO % 9.3 % (0.0-5.0); NEUTROPHILS % 54.4 % (36.0-66.0); PLATELET COUNT, AUTOMATED 185 10^3/uL (150-450); RED BLOOD COUNT 5.07 10^6/uL (4.30-6.10); WHITE BLOOD COUNT 14.8 10^3/uL (4.0-10.0)
[2019-09-18 07:35] LABS: CALCIUM LEVEL 8.8 MG/DL (8.8-10.2); CREATININE FOR GFR 1.27 MG/DL (0.70-1.30); GLOMERULAR FILTRATION RATE 56.8 (>35); POTASSIUM SERUM 4.6 MEQ/L (3.5-5.1)
[2019-09-18] MEDS: ACETAMINOPHEN TAB 650MG DOSE (2X325MG) PO PRN ×2 (08:44→21:49)
[2019-09-18] MEDS: DOCUSATE SODIUM 100 MG CAP PO SCH ×3 (08:45→21:47)
[2019-09-18] MEDS: PANTOPRAZOLE 40MG TAB (PROTONIX) PO SCH (08:45)
[2019-09-18] MEDS: CO-ENZYME Q10 50 MG CAP PO SCH (08:45)
[2019-09-18] MEDS: ATORVASTATIN 10 MG TAB PO SCH (08:45)
[2019-09-18] MEDS: HEPARIN SOD (PORCINE) 5000UNITS/ML VIAL (J1644 PER 1000UNITS) SC SCH ×2 (08:45→21:47)
[2019-09-18] MEDS: SODIUM CHLORIDE NASAL 0.65% SPRAY BTL (OCEAN) SCH ×3 (08:48→21:00)
[2019-09-18] MEDS: METOPROLOL SUCC *XL* 12.5MG PER 1/2 TAB (TopROL *XL*) PO SCH (08:48)
[2019-09-18] MEDS: REMEDY PHYTOPLEX Z-GUARD PASTE 113GM TUBE (FROM STOREROOM PRODUCT) TOP SCH ×3 (08:49→21:50)
[2019-09-18] MEDS: FLUTICASONE PROP 0.05% NASAL SPRAY 16 GM (FLONASE) NARES SCH ×2 (08:49→21:00)
[2019-09-18] MEDS: BRIMONIDINE 0.1% OPHTH SOLN 5 ML OU SCH ×2 (08:50→21:50)
[2019-09-18 14:00] VITALS: BP 125/63
[2019-09-18 20:00] VITALS: BP 134/63
[2019-09-18] MEDS: SENNA 8.6 MG TAB (SENOKOT) PO SCH ×2 (21:00→21:47)
[2019-09-18] MEDS: traZODone 25MG PER 1/2 TABLET PO SCH (21:48)
[2019-09-18] MEDS: LATANOPROST 0.005% OPHTH SOLN 2.5 ML OU SCH (21:50)
[2019-09-19] MEDS: LEVOTHYROXINE 100MCG TABLET (0.1MG) PO SCH (05:35)
[2019-09-19 06:00] VITALS: BP 126/69
[2019-09-19] MEDS: REMEDY PHYTOPLEX Z-GUARD PASTE 113GM TUBE (FROM STOREROOM PRODUCT) TOP SCH ×3 (09:00→20:34)
[2019-09-19] MEDS: DOCUSATE SODIUM 100 MG CAP PO SCH ×2 (09:00→20:29)
[2019-09-19] MEDS: FLUTICASONE PROP 0.05% NASAL SPRAY 16 GM (FLONASE) NARES SCH ×2 (09:00→20:35)
[2019-09-19] MEDS: SODIUM CHLORIDE NASAL 0.65% SPRAY BTL (OCEAN) SCH ×3 (09:00→20:36)
[2019-09-19] MEDS: HEPARIN SOD (PORCINE) 5000UNITS/ML VIAL (J1644 PER 1000UNITS) SC SCH ×2 (09:34→20:31)
[2019-09-19] MEDS: CO-ENZYME Q10 50 MG CAP PO SCH (09:34)
[2019-09-19] MEDS: ATORVASTATIN 10 MG TAB PO SCH (09:34)
[2019-09-19] MEDS: PANTOPRAZOLE 40MG TAB (PROTONIX) PO SCH (09:35)
[2019-09-19] MEDS: METOPROLOL SUCC *XL* 12.5MG PER 1/2 TAB (TopROL *XL*) PO SCH (09:36)
[2019-09-19] MEDS: BRIMONIDINE 0.1% OPHTH SOLN 5 ML OU SCH ×2 (09:37→20:36)
--- NOTE | 2019-09-19 11:59 | IPNPDOC ---
PM&R Progress Note DATE OF SERVICE: Sep 18, 2019 Neonatal Intensive Care Unit Nurse Progress Note Subjective: Patient reporting he slept better last night with the trazodone, but after eating a cheese omelette he felt weak and not well all day until he had a bowel movement. He feels better now and thinks it may have had to do with eating lactose. He denies fevers or chills. REVIEW OF SYSTEMS: The following is a completed review of systems and has been reviewed. Review of systems otherwise unremarkable. PAIN: Patient self reports no pain EYES: No recent vision changes EARS, NOSE, & THROAT: No throat pain, or dysphagia, or rhinorrhea CARDIOVASCULAR: Denies chest pain or palpitations PULMONARY: Denies shortness of breath GASTROINTESTINAL: Denies constipation/diarrhea GENITOURINARY: denies dysuria MUSCULOSKELETAL: generalized weakness NEUROLOGICAL:+vertigo HEMATOLOGICAL: denies easy bruising SKIN: no rash PSYCHIATRIC: Unremarkable All other review of systems found to be negative. PHYSICAL EXAMINATION: VITAL SIGNS: Please see below. GENERAL: Pleasant and cooperative. No acute distress. HEENT: PERRL. Extraocular movements intact. Clear conjunctiva CARDIOVASCULAR: Regular rate and rhythm. +systolic murmurs, rubs, or gallops LUNGS: Clear to auscultation bilaterally. No wheezes. No rhonchi ABDOMEN: Soft, nontender, nondistended. Positive bowel sounds. Normal active bowel sounds NEUROLOGICAL: Alert and oriented times three. Cranial nerves II through XII gr ossly intact. Sensation grossly intact +horizontal nystagmus with leftward gaze >right (-) dysmetria (-) babinksi/clonus EXTREMITIES: 5\5 strength bilateral upper extremities. 5\5 strength right lower extremity. 5/5 strength in left lower extremity. SKIN: intact ASSESSMENT:89-year-old M with past medical history of HLD, HTN who presents status post acute onset dizziness due to vestibular neuritis PLAN: 1. Rehab- PT/OT advance gait and ADL training, strengthen/stretch/maintain ROM all 4 limbs, vestibular therapy-ambulating with RW 2. Neuro-patient with notable gait and mobility impairment due to vestibular neuritis, s/p steroid treatment, c/u Zofran prn 3. Cardiac: hx of HTN c/u beta-mina, 2gm sodium restrict -hx of diastolic CHF, daily weights, fluid restrict, monitor for fluid overload -medicine consulted to assist in overall management 4. Resp: encourage incentive spirometry, monitor for infection 5. Endo: hx of hypothyroidism, c/u Synthroid 6. DVT ppx: heparin and teds 7. GI ppx: Protonix 40mg daily -patient reports his weakness today improved following a large bowel movement and thinks he felt ill earlier in the day because his omelette had cheese on it 8. pain: Tylenol prn 9. Psycy: insomnia, c/u trazodone 10. Leukocytosis: improved from 18-->14 most likely due to recent steroid use, will monitor 11. Dispo: 09-26-19 to home or [facility] Allergies Coded Allergies: lactose (Verified Adverse Reaction, Intermediate, 09/09/19) Vital Signs Vital Signs Date Time Temp Pulse Resp B/P (MAP) Pulse Ox O2 Delivery O2 Flow Rate FiO2 09/19/19 09:36 85 127/59 09/19/19 06:00 99.1 16 99 Room Air Current Medications Current Medications Current Medications Medications (Trade) Dose Ordered Sig/Zbigniew Route PRN Reason Start Time Stop Time Status Last Admin Dose Admin Acetaminophen (Tylenol Tab) 650 mg Q4HP PRN PO fever/MILD PAIN (PS 1-4) 09/16/19 14:00 09/18/19 21:49 Atorvastatin Calcium (Lipitor) 10 mg DAILY PO 09/17/19 09:00 09/19/19 09:34 Bisacodyl (Dulcolax Suppository) 10 mg DAILYPRN PRN [place] CONSTIPATION 09/16/19 14:00 Brimonidine Tartrate (Alphagan P 0.1%) 1 drop BID OU 09/16/19 21:00 09/19/19 09:37 Coenzyme Q10 (Coenzyme Q10) 200 mg DAILY PO 09/17/19 09:00 10/17/19 08:59 09/19/19 09:34 Docusate Sodium (Colace) 100 mg BID PO 09/16/19 21:00 09/18/19 08:45 Fluticasone Propionate (Flonase 0.05% Nasal [place]) 1 spray BID NARES 09/16/19 21:00 09/18/19 08:49 Heparin Sodium (Porcine) (Heparin) 5,000 units Q12H SC 09/16/19 21:00 09/19/19 09:34 Latanoprost (Xalatan 0.005% Op Soln) 1 drop QHS OU 09/16/19 21:00 09/18/19 21:50 Levothyroxine Sodium (Synthroid) 100 mcg DAILY@06 PO 09/17/19 06:00 09/19/19 05:35 Meclizine HCl (Antivert) 12.5 mg TID PO 09/16/19 16:00 09/16/19 16:02 DC Metoprolol Succinate (TopROL XL) 12.5 mg DAILY PO 09/17/19 09:00 09/19/19 09:36 Ondansetron HCl (Zofran) 4 mg Q6HP PRN PO NAUSEA/dizziness 09/16/19 14:00 Pantoprazole Sodium (Protonix) 40 mg BID PO 09/16/19 21:00 09/17/19 10:20 DC 09/17/19 08:47 Pantoprazole Sodium (Protonix) 40 mg DAILY PO 09/18/19 09:00 09/19/19 09:35 Prednisone (Deltasone) 50 mg DAILY PO 09/17/19 09:00 09/16/19 16:05 DC Senna (Senokot) 1 tab QHS PO 09/16/19 21:00 09/17/19 20:41 Sodium Chloride ([place] Nasal [place]) 2 spray TID NA 09/16/19 16:00 09/18/19 08:48 Trazodone HCl (Desyrel) 25 mg QHS PO 09/17/19 21:00 09/18/19 21:48 Trazodone HCl (Desyrel) 25 mg QHSP PRN PO INSOMNIA 09/16/19 16:15 09/17/19 14:47 CHRISTIAN ALDANA MD Sep 19, 2019 11:59
[2019-09-19 14:00] VITALS: BP 128/65
[2019-09-19 20:00] VITALS: BP 113/58
[2019-09-19] MEDS: SENNA 8.6 MG TAB (SENOKOT) PO SCH (20:31)
[2019-09-19] MEDS: traZODone 25MG PER 1/2 TABLET PO SCH (20:31)
[2019-09-19] MEDS: LATANOPROST 0.005% OPHTH SOLN 2.5 ML OU SCH (20:37)
[2019-09-20] MEDS: LEVOTHYROXINE 100MCG TABLET (0.1MG) PO SCH (05:44)
[2019-09-20 06:00] VITALS: BP 133/71
[2019-09-20 07:10] LABS: BASO # 0.1 10^3/uL (0.0-0.2); BASO % 0.7 % (0.0-1.0); EOS # 0.3 10^3/uL (0.0-0.5); EOS % 2.3 % (0.0-3.0); HEMATOCRIT 41.9 % (42.0-52.0); HEMOGLOBIN 13.8 g/dl (13.5-17.5); LYMPH # 2.7 10^3/uL (1.5-5.0); LYMPH % 23.7 % (24.0-44.0); MEAN CORPUSCULAR HEMOGLOBIN 29.9 pg (27.0-33.0); MEAN CORPUSCULAR HGB CONC 32.9 g/dl (32.0-36.5); MEAN CORPUSCULAR VOLUME 90.7 fl (80.0-96.0); MONO % 8.8 % (0.0-5.0); NEUTROPHILS % 60.8 % (36.0-66.0); PLATELET COUNT, AUTOMATED 167 10^3/uL (150-450); RED BLOOD COUNT 4.62 10^6/uL (4.30-6.10); WHITE BLOOD COUNT 11.4 10^3/uL (4.0-10.0)
[2019-09-20 07:48] LABS: BLOOD UREA NITROGEN 26 MG/DL (7-18); CALCIUM LEVEL 8.5 MG/DL (8.8-10.2); CARBON DIOXIDE LEVEL 30 MEQ/L (21-32); CHLORIDE LEVEL 105 MEQ/L (98-107); CREATININE FOR GFR 1.14 MG/DL (0.70-1.30); GLOMERULAR FILTRATION RATE > 60.0 (>35); GLUCOSE, FASTING 97 MG/DL (70-100); POTASSIUM SERUM 4.5 MEQ/L (3.5-5.1); SODIUM LEVEL 138 MEQ/L (136-145)
[2019-09-20] MEDS: FLUTICASONE PROP 0.05% NASAL SPRAY 16 GM (FLONASE) NARES SCH ×2 (09:32→20:51)
[2019-09-20] MEDS: SODIUM CHLORIDE NASAL 0.65% SPRAY BTL (OCEAN) SCH ×3 (09:32→20:52)
[2019-09-20] MEDS: HEPARIN SOD (PORCINE) 5000UNITS/ML VIAL (J1644 PER 1000UNITS) SC SCH ×2 (09:33→20:50)
[2019-09-20] MEDS: BRIMONIDINE 0.1% OPHTH SOLN 5 ML OU SCH ×2 (09:33→20:51)
[2019-09-20] MEDS: CO-ENZYME Q10 50 MG CAP PO SCH (09:33)
[2019-09-20] MEDS: PANTOPRAZOLE 40MG TAB (PROTONIX) PO SCH (09:33)
[2019-09-20] MEDS: DOCUSATE SODIUM 100 MG CAP PO SCH ×2 (09:33→20:50)
[2019-09-20] MEDS: ATORVASTATIN 10 MG TAB PO SCH (09:33)
[2019-09-20] MEDS: REMEDY PHYTOPLEX Z-GUARD PASTE 113GM TUBE (FROM STOREROOM PRODUCT) TOP SCH ×3 (09:34→20:52)
[2019-09-20] MEDS: METOPROLOL SUCC *XL* 12.5MG PER 1/2 TAB (TopROL *XL*) PO SCH (09:34)
--- NOTE | 2019-09-20 13:52 | IPNPDOC ---
PM&R Progress Note DATE OF SERVICE: Sep 19, 2019 Computer Hardware Developer Progress Note Subjective: Patient reporting he feels significantly better than when he arrived and practiced walking without a walker today. REVIEW OF SYSTEMS: The following is a completed review of systems and has been reviewed. Review of systems otherwise unremarkable. PAIN: Patient self reports no pain EYES: No recent vision changes EARS, NOSE, & THROAT: No throat pain, or dysphagia, or rhinorrhea CARDIOVASCULAR: Denies chest pain or palpitations PULMONARY: Denies shortness of breath GASTROINTESTINAL: Denies constipation/diarrhea GENITOURINARY: denies dysuria MUSCULOSKELETAL: generalized weakness NEUROLOGICAL:+vertigo HEMATOLOGICAL: denies easy bruising SKIN: no rash PSYCHIATRIC: Unremarkable All other review of systems found to be negative. PHYSICAL EXAMINATION: VITAL SIGNS: Please see below. GENERAL: Pleasant and cooperative. No acute distress. HEENT: PERRL. Extraocular movements intact. Clear conjunctiva CARDIOVASCULAR: Regular rate and rhythm. +systolic murmurs, rubs, or gallops LUNGS: Clear to auscultation bilaterally. No wheezes. No rhonchi ABDOMEN: Soft, nontender, nondistended. Positive bowel sounds. Normal active bowel sounds NEUROLOGICAL: Alert and oriented times three. Cranial nerves II through XII grossly intact. Sensation grossly intact +horizontal nystagmus with leftward gaze >right (-) dysmetria (-) babinksi/clonus EXTREMITIES: 5\5 strength bilateral upper extremities. 5\5 strength right lower extremity. 5/5 strength in left lower extremity. SKIN: intact ASSESSMENT:89-year-old M with past medical history of HLD, HTN who presents status post acute onset dizziness due to vestibular neuritis PLAN: 1. Rehab- PT/OT advance gait and ADL training, strengthen/stretch/maintain ROM all 4 limbs, vestibular therapy-ambulating without AD 2. Neuro-patient with notable gait and mobility impairment due to vestibular neuritis, s/p steroid treatment, c/u Zofran prn 3. Cardiac: hx of HTN c/u beta-mina, 2gm sodium restrict -hx of diastolic CHF, daily weights, fluid restrict, monitor for fluid overload -medicine consulted to assist in overall management 4. Resp: encourage incentive spirometry, monitor for infection 5. Endo: hx of hypothyroidism, c/u Synthroid 6. DVT ppx: heparin and teds 7. GI ppx: Protonix 40mg daily 8. pain: Tylenol prn 9. Psycy: insomnia, c/u trazodone 10. Leukocytosis: improved from 18-->14 most likely due to recent steroid use, will monitor-no sings of active infection 11. Dispo: 09-26-19 to home or [facility] Allergies Coded Allergies: lactose (Verified Adverse Reaction, Intermediate, 09/09/19) Vital Signs Vital Signs Date Time Temp Pulse Resp B/P (MAP) Pulse Ox O2 Delivery O2 Flow Rate FiO2 09/20/19 09:34 71 133/71 09/20/19 06:00 97.8 16 100 Room Air Laboratory Data CBC/BMP Laboratory Tests 09/20/19 06:36 Labs 24H Laboratory Tests 2 09/20/19 06:36: Immature Granulocyte % (Auto) 3.7H, Neutrophils (%) (Auto) 60.8, Lymphocytes (%) (Auto) 23.7L, Monocytes (%) (Auto) 8.8H, Eosinophils (%) (Auto) 2.3, Basophils (%) (Auto) 0.7, Neutrophils # (Auto) 7.0, Lymphocytes # (Auto) 2.7, Monocytes # (Auto) 1.0H, Eosinophils # (Auto) 0.3, Basophils # (Auto) 0.1, Nucleated Red Blood Cells % (auto) 0.0, Anion Gap 3L, Glomerular Filtration Rate > 60.0, Calcium Level 8.5L Current Medications Current Medications Current Medications Medications (Trade) Dose Ordered Sig/Zbigniew Route PRN Reason Start Time Stop Time Status Last Admin Dose Admin Acetaminophen (Tylenol Tab) 650 mg Q4HP PRN PO fever/MILD PAIN (PS 1-4) 09/16/19 14:00 09/18/19 21:49 Atorvastatin Calcium (Lipitor) 10 mg DAILY PO 09/17/19 09:00 09/20/19 09:33 Bisacodyl (Dulcolax Suppository) 10 mg DAILYPRN PRN [place] CONSTIPATION 09/16/19 14:00 Brimonidine Tartrate (Alphagan P 0.1%) 1 drop BID OU 09/16/19 21:00 09/20/19 09:33 Coenzyme Q10 (Coenzyme Q10) 200 mg DAILY PO 09/17/19 09:00 10/17/19 08:59 09/20/19 09:33 Docusate Sodium (Colace) 100 mg BID PO 09/16/19 21:00 09/20/19 09:33 Fluticasone Propionate (Flonase 0.05% Nasal [place]) 1 spray BID NARES 09/16/19 21:00 09/20/19 09:32 Heparin Sodium (Porcine) (Heparin) 5,000 units Q12H SC 09/16/19 21:00 09/20/19 09:33 Latanoprost (Xalatan 0.005% Op Soln) 1 drop QHS OU 09/16/19 21:00 09/19/19 20:37 Levothyroxine Sodium (Synthroid) 100 mcg DAILY@06 PO 09/17/19 06:00 09/20/19 05:44 Meclizine HCl (Antivert) 12.5 mg TID PO 09/16/19 16:00 09/16/19 16:02 DC Metoprolol Succinate (TopROL XL) 12.5 mg DAILY PO 09/17/19 09:00 09/20/19 09:34 Ondansetron HCl (Zofran) 4 mg Q6HP PRN PO NAUSEA/dizziness 09/16/19 14:00 Pantoprazole Sodium (Protonix) 40 mg BID PO 09/16/19 21:00 09/17/19 10:20 DC 09/17/19 08:47 Pantoprazole Sodium (Protonix) 40 mg DAILY PO 09/18/19 09:00 09/20/19 09:33 Prednisone (Deltasone) 50 mg DAILY PO 09/17/19 09:00 09/16/19 16:05 DC Senna (Senokot) 1 tab QHS PO 09/16/19 21:00 09/17/19 20:41 Sodium Chloride ([place] Nasal [place]) 2 spray TID NA 09/16/19 16:00 09/20/19 09:32 Trazodone HCl (Desyrel) 25 mg QHS PO 09/17/19 21:00 09/19/19 20:31 Trazodone HCl (Desyrel) 25 mg QHSP PRN PO INSOMNIA 09/16/19 16:15 09/17/19 14:47 CHRISTIAN ALDANA MD Sep 20, 2019 13:52
--- NOTE | 2019-09-20 13:53 | IPNPDOC ---
PM&R Progress Note DATE OF SERVICE: Sep 20, 2019 Compliance Field Technician Progress Note Subjective: Patient reporting he is in good spirits and thinks he is getting stronger. REVIEW OF SYSTEMS: The following is a completed review of systems and has been reviewed. Review of systems otherwise unremarkable. PAIN: Patient self reports no pain EYES: No recent vision changes EARS, NOSE, & THROAT: No throat pain, or dysphagia, or rhinorrhea CARDIOVASCULAR: Denies chest pain or palpitations PULMONARY: Denies shortness of breath GASTROINTESTINAL: Denies constipation/diarrhea GENITOURINARY: denies dysuria MUSCULOSKELETAL: generalized weakness NEUROLOGICAL:+vertigo HEMATOLOGICAL: denies easy bruising SKIN: no rash PSYCHIATRIC: Unremarkable All other review of systems found to be negative. PHYSICAL EXAMINATION: VITAL SIGNS: Please see below. GENERAL: Pleasant and cooperative. No acute distress. HEENT: PERRL. Extraocular movements intact. Clear conjunctiva CARDIOVASCULAR: Regular rate and rhythm. +systolic murmurs, rubs, or gallops LUNGS: Clear to auscultation bilaterally. No wheezes. No rhonchi ABDOMEN: Soft, nontender, nondistended. Positive bowel sounds. Normal active bowel sounds NEUROLOGICAL: Alert and oriented times three. Cranial nerves II through XII grossly intact. Sensation grossly intact +horizontal nystagmus with leftward gaze >right (-) dysmetria (-) babinksi/clonus EXTREMITIES: 5\5 strength bilateral upper extremities. 5\5 strength right lower extremity. 5/5 strength in left lower extremity. SKIN: intact ASSESSMENT:89-year-old M with past medical history of HLD, HTN who presents status post acute onset dizziness due to vestibular neuritis PLAN: 1. Rehab- PT/OT advance gait and ADL training, strengthen/stretch/maintain ROM all 4 limbs, vestibular therapy-ambulating without AD 2. Neuro-patient with notable gait and mobility impairment due to vestibular neuritis, s/p steroid treatment, c/u Zofran prn 3. Cardiac: hx of HTN c/u beta-mina, 2gm sodium restrict -hx of diastolic CHF, daily weights, fluid restrict, monitor for fluid overload -medicine consulted to assist in overall management 4. Resp: encourage incentive spirometry, monitor for infection 5. Endo: hx of hypothyroidism, c/u Synthroid 6. DVT ppx: heparin and teds 7. GI ppx: Protonix 40mg daily 8. pain: Tylenol prn 9. Psycy: insomnia, c/u trazodone 10. Leukocytosis: improved from 18-->14-->11 most likely due to recent steroid use, will monitor-no signs of active infection 11. Dispo: 09-26-19 to home or [facility] Allergies Coded Allergies: lactose (Verified Adverse Reaction, Intermediate, 09/09/19) Vital Signs Vital Signs Date Time Temp Pulse Resp B/P (MAP) Pulse Ox O2 Delivery O2 Flow Rate FiO2 09/20/19 09:34 71 133/71 09/20/19 06:00 97.8 16 100 Room Air Laboratory Data CBC/BMP Laboratory Tests 09/20/19 06:36 Labs 24H Laboratory Tests 2 09/20/19 06:36: Immature Granulocyte % (Auto) 3.7H, Neutrophils (%) (Auto) 60.8, Lymphocytes (%) (Auto) 23.7L, Monocytes (%) (Auto) 8.8H, Eosinophils (%) (Auto) 2.3, Basophils (%) (Auto) 0.7, Neutrophils # (Auto) 7.0, Lymphocytes # (Auto) 2.7, Monocytes # (Auto) 1.0H, Eosinophils # (Auto) 0.3, Basophils # (Auto) 0.1, Nucleated Red Blood Cells % (auto) 0.0, Anion Gap 3L, Glomerular Filtration Rate > 60.0, Calcium Level 8.5L Current Medications Current Medications Current Medications Medications (Trade) Dose Ordered Sig/Zbigniew Route PRN Reason Start Time Stop Time Status Last Admin Dose Admin Acetaminophen (Tylenol Tab) 650 mg Q4HP PRN PO fever/MILD PAIN (PS 1-4) 09/16/19 14:00 09/18/19 21:49 Atorvastatin Calcium (Lipitor) 10 mg DAILY PO 09/17/19 09:00 09/20/19 09:33 Bisacodyl (Dulcolax Suppository) 10 mg DAILYPRN PRN [place] CONSTIPATION 09/16/19 14:00 Brimonidine Tartrate (Alphagan P 0.1%) 1 drop BID OU 09/16/19 21:00 09/20/19 09:33 Coenzyme Q10 (Coenzyme Q10) 200 mg DAILY PO 09/17/19 09:00 10/17/19 08:59 09/20/19 09:33 Docusate Sodium (Colace) 100 mg BID PO 09/16/19 21:00 09/20/19 09:33 Fluticasone Propionate (Flonase 0.05% Nasal [place]) 1 spray BID NARES 09/16/19 21:00 09/20/19 09:32 Heparin Sodium (Porcine) (Heparin) 5,000 units Q12H SC 09/16/19 21:00 09/20/19 09:33 Latanoprost (Xalatan 0.005% Op Soln) 1 drop QHS OU 09/16/19 21:00 09/19/19 20:37 Levothyroxine Sodium (Synthroid) 100 mcg DAILY@06 PO 09/17/19 06:00 09/20/19 05:44 Meclizine HCl (Antivert) 12.5 mg TID PO 09/16/19 16:00 09/16/19 16:02 DC Metoprolol Succinate (TopROL XL) 12.5 mg DAILY PO 09/17/19 09:00 09/20/19 09:34 Ondansetron HCl (Zofran) 4 mg Q6HP PRN PO NAUSEA/dizziness 09/16/19 14:00 Pantoprazole Sodium (Protonix) 40 mg BID PO 09/16/19 21:00 09/17/19 10:20 DC 09/17/19 08:47 Pantoprazole Sodium (Protonix) 40 mg DAILY PO 09/18/19 09:00 09/20/19 09:33 Prednisone (Deltasone) 50 mg DAILY PO 09/17/19 09:00 09/16/19 16:05 DC Senna (Senokot) 1 tab QHS PO 09/16/19 21:00 09/17/19 20:41 Sodium Chloride ([place] Nasal [place]) 2 spray TID NA 09/16/19 16:00 09/20/19 09:32 Trazodone HCl (Desyrel) 25 mg QHS PO 09/17/19 21:00 09/19/19 20:31 Trazodone HCl (Desyrel) 25 mg QHSP PRN PO INSOMNIA 09/16/19 16:15 09/17/19 14:47 CHRISTIAN ALDANA MD Sep 20, 2019 13:53
[2019-09-20 14:00] VITALS: BP 122/76
[2019-09-20 20:05] VITALS: BP 125/80
[2019-09-20] MEDS: traZODone 25MG PER 1/2 TABLET PO SCH (20:50)
[2019-09-20] MEDS: SENNA 8.6 MG TAB (SENOKOT) PO SCH (20:50)
[2019-09-20] MEDS: ACETAMINOPHEN TAB 650MG DOSE (2X325MG) PO PRN (20:51)
[2019-09-20] MEDS: LATANOPROST 0.005% OPHTH SOLN 2.5 ML OU SCH (20:51)
[2019-09-21] MEDS: LEVOTHYROXINE 100MCG TABLET (0.1MG) PO SCH (05:40)
[2019-09-21 06:00] VITALS: BP 159/78
[2019-09-21] MEDS: METOPROLOL SUCC *XL* 12.5MG PER 1/2 TAB (TopROL *XL*) PO SCH (08:23)
[2019-09-21] MEDS: CO-ENZYME Q10 50 MG CAP PO SCH (08:23)
[2019-09-21] MEDS: PANTOPRAZOLE 40MG TAB (PROTONIX) PO SCH (08:23)
[2019-09-21] MEDS: HEPARIN SOD (PORCINE) 5000UNITS/ML VIAL (J1644 PER 1000UNITS) SC SCH ×2 (08:23→20:49)
[2019-09-21] MEDS: ATORVASTATIN 10 MG TAB PO SCH (08:24)
[2019-09-21] MEDS: DOCUSATE SODIUM 100 MG CAP PO SCH ×2 (08:24→20:50)
[2019-09-21] MEDS: FLUTICASONE PROP 0.05% NASAL SPRAY 16 GM (FLONASE) NARES SCH ×2 (08:24→20:48)
[2019-09-21] MEDS: SODIUM CHLORIDE NASAL 0.65% SPRAY BTL (OCEAN) SCH ×3 (08:24→20:49)
[2019-09-21] MEDS: REMEDY PHYTOPLEX Z-GUARD PASTE 113GM TUBE (FROM STOREROOM PRODUCT) TOP SCH ×3 (08:25→20:50)
[2019-09-21] MEDS: BRIMONIDINE 0.1% OPHTH SOLN 5 ML OU SCH ×2 (08:25→20:48)
[2019-09-21 13:30] VITALS: BP 128/62
[2019-09-21 20:00] VITALS: BP 134/72
[2019-09-21] MEDS: LATANOPROST 0.005% OPHTH SOLN 2.5 ML OU SCH (20:49)
[2019-09-21] MEDS: traZODone 25MG PER 1/2 TABLET PO SCH (20:50)
[2019-09-21] MEDS: SENNA 8.6 MG TAB (SENOKOT) PO SCH (20:50)
[2019-09-22] MEDS: LEVOTHYROXINE 100MCG TABLET (0.1MG) PO SCH (05:56)
[2019-09-22 06:00] VITALS: BP 120/70
[2019-09-22] MEDS: REMEDY PHYTOPLEX Z-GUARD PASTE 113GM TUBE (FROM STOREROOM PRODUCT) TOP SCH ×3 (09:00→21:00)
[2019-09-22] MEDS: HEPARIN SOD (PORCINE) 5000UNITS/ML VIAL (J1644 PER 1000UNITS) SC SCH ×2 (09:00→21:00)
[2019-09-22] MEDS: PANTOPRAZOLE 40MG TAB (PROTONIX) PO SCH (09:22)
[2019-09-22] MEDS: CO-ENZYME Q10 50 MG CAP PO SCH (09:23)
[2019-09-22] MEDS: ATORVASTATIN 10 MG TAB PO SCH (09:23)
[2019-09-22] MEDS: METOPROLOL SUCC *XL* 12.5MG PER 1/2 TAB (TopROL *XL*) PO SCH (09:23)
[2019-09-22] MEDS: DOCUSATE SODIUM 100 MG CAP PO SCH ×2 (09:24→21:20)
[2019-09-22] MEDS: SODIUM CHLORIDE NASAL 0.65% SPRAY BTL (OCEAN) SCH ×3 (09:25→21:00)
[2019-09-22] MEDS: BRIMONIDINE 0.1% OPHTH SOLN 5 ML OU SCH ×2 (09:26→21:20)
[2019-09-22] MEDS: FLUTICASONE PROP 0.05% NASAL SPRAY 16 GM (FLONASE) NARES SCH ×2 (09:26→21:00)
[2019-09-22 14:00] VITALS: BP 133/63
[2019-09-22 20:25] VITALS: BP 139/74
[2019-09-22] MEDS: ACETAMINOPHEN TAB 650MG DOSE (2X325MG) PO PRN (21:20)
[2019-09-22] MEDS: traZODone 25MG PER 1/2 TABLET PO SCH (21:20)
[2019-09-22] MEDS: LATANOPROST 0.005% OPHTH SOLN 2.5 ML OU SCH (21:20)
[2019-09-22] MEDS: SENNA 8.6 MG TAB (SENOKOT) PO SCH (21:20)
[2019-09-23] MEDS: LEVOTHYROXINE 100MCG TABLET (0.1MG) PO SCH (05:30)
[2019-09-23 06:00] VITALS: BP 145/69
[2019-09-23 06:27] LABS: BASO # 0.1 10^3/uL (0.0-0.2); BASO % 0.7 % (0.0-1.0); EOS # 0.2 10^3/uL (0.0-0.5); EOS % 2.5 % (0.0-3.0); HEMOGLOBIN 13.1 g/dl (13.5-17.5); LYMPH # 2.3 10^3/uL (1.5-5.0); LYMPH % 26.9 % (24.0-44.0); MEAN CORPUSCULAR HEMOGLOBIN 29.8 pg (27.0-33.0); MEAN CORPUSCULAR HGB CONC 32.8 g/dl (32.0-36.5); MEAN CORPUSCULAR VOLUME 91.1 fl (80.0-96.0); MONO # 0.8 10^3/uL (0.0-0.8); MONO % 9.7 % (0.0-5.0); NEUTROPHILS % 58.9 % (36.0-66.0); PLATELET COUNT, AUTOMATED 142 10^3/uL (150-450); RED BLOOD COUNT 4.39 10^6/uL (4.30-6.10); WHITE BLOOD COUNT 8.4 10^3/uL (4.0-10.0)
[2019-09-23 06:46] LABS: BLOOD UREA NITROGEN 17 MG/DL (7-18); CALCIUM LEVEL 8.6 MG/DL (8.8-10.2); CARBON DIOXIDE LEVEL 28 MEQ/L (21-32); CHLORIDE LEVEL 107 MEQ/L (98-107); CREATININE FOR GFR 1.17 MG/DL (0.70-1.30); GLOMERULAR FILTRATION RATE > 60.0 (>35); GLUCOSE, FASTING 100 MG/DL (70-100); POTASSIUM SERUM 4.2 MEQ/L (3.5-5.1); SODIUM LEVEL 139 MEQ/L (136-145)
[2019-09-23] MEDS: HEPARIN SOD (PORCINE) 5000UNITS/ML VIAL (J1644 PER 1000UNITS) SC SCH (08:14)
[2019-09-23] MEDS: REMEDY PHYTOPLEX Z-GUARD PASTE 113GM TUBE (FROM STOREROOM PRODUCT) TOP SCH ×3 (08:14→20:57)
[2019-09-23] MEDS: FLUTICASONE PROP 0.05% NASAL SPRAY 16 GM (FLONASE) NARES SCH ×2 (09:00→20:56)
[2019-09-23] MEDS: ACETAMINOPHEN TAB 650MG DOSE (2X325MG) PO PRN (09:44)
[2019-09-23] MEDS: METOPROLOL SUCC *XL* 12.5MG PER 1/2 TAB (TopROL *XL*) PO SCH (09:44)
[2019-09-23] MEDS: CO-ENZYME Q10 50 MG CAP PO SCH (09:45)
[2019-09-23] MEDS: DOCUSATE SODIUM 100 MG CAP PO SCH ×2 (09:50→20:55)
[2019-09-23] MEDS: PANTOPRAZOLE 40MG TAB (PROTONIX) PO SCH (09:50)
[2019-09-23] MEDS: SODIUM CHLORIDE NASAL 0.65% SPRAY BTL (OCEAN) SCH ×3 (09:51→20:58)
[2019-09-23] MEDS: BRIMONIDINE 0.1% OPHTH SOLN 5 ML OU SCH ×2 (09:51→20:56)
[2019-09-23] MEDS: ATORVASTATIN 10 MG TAB PO SCH (09:51)
[2019-09-23 14:00] VITALS: BP 139/62
--- NOTE | 2019-09-23 15:26 | IPNPDOC ---
PM&R Progress Note DATE OF SERVICE: Sep 23, 2019 Director State [facility] Progress Note Subjective: Patient reporting he walked on the treadmill this weekend and his right hip is a little sore, but feels better after using the K-pad. REVIEW OF SYSTEMS: The following is a completed review of systems and has been reviewed. Review of systems otherwise unremarkable. PAIN: Patient self reports no pain EYES: No recent vision changes EARS, NOSE, & THROAT: No throat pain, or dysphagia, or rhinorrhea CARDIOVASCULAR: Denies chest pain or palpitations PULMONARY: Denies shortness of breath GASTROINTESTINAL: Denies constipation/diarrhea GENITOURINARY: denies dysuria MUSCULOSKELETAL: generalized weakness NEUROLOGICAL:+vertigo HEMATOLOGICAL: denies easy bruising SKIN: no rash PSYCHIATRIC: Unremarkable All other review of systems found to be negative. PHYSICAL EXAMINATION: VITAL SIGNS: Please see below. GENERAL: Pleasant and cooperative. No acute distress. HEENT: PERRL. Extraocular movements intact. Clear conjunctiva CARDIOVASCULAR: Regular rate and rhythm. +systolic murmurs, rubs, or gallops LUNGS: Clear to auscultation bilaterally. No wheezes. No rhonchi ABDOMEN: Soft, nontender, nondistended. Positive bowel sounds. Normal active bowel sounds NEUROLOGICAL: Alert and oriented times three. Cranial nerves II through XII grossly intact. Sensation grossly intact +horizontal nystagmus with leftward gaze >right (-) dysmetria (-) babinksi/clonus EXTREMITIES: 5\5 strength bilateral upper extremities. 5\5 strength right lower extremity. 5/5 strength in left lower extremity. SKIN: intact ASSESSMENT:89-year-old M with past medical history of HLD, HTN who presents status post acute onset dizziness due to vestibular neuritis PLAN: 1. Rehab- PT/OT advance gait and ADL training, strengthen/stretch/maintain ROM all 4 limbs, vestibular therapy-ambulating without AD 2. Neuro-patient with notable gait and mobility impairment due to vestibular neuritis, s/p steroid treatment, c/u Zofran prn 3. Cardiac: hx of HTN c/u beta-mina, 2gm sodium restrict -hx of diastolic CHF, daily weights, fluid restrict, monitor for fluid overload -medicine consulted to assist in overall management 4. Resp: encourage incentive spirometry, monitor for infection 5. Endo: hx of hypothyroidism, c/u Synthroid 6. DVT ppx: heparin and teds 7. GI ppx: Protonix 40mg daily 8. pain: Tylenol prn 9. Psycy: insomnia, c/u trazodone 10. Leukocytosis: improved from 18-->14-->11 most likely due to recent steroid use, will monitor-no signs of active infection 11. Dispo: 09-26-19 to [facility] Allergies Coded Allergies: lactose (Verified Adverse Reaction, Intermediate, 09/09/19) Vital Signs Vital Signs Date Time Temp Pulse Resp B/P (MAP) Pulse Ox O2 Delivery O2 Flow Rate FiO2 09/23/19 14:00 98.0 86 18 139/62 (87) 97 Room Air Laboratory Data CBC/BMP Laboratory Tests 09/23/19 06:11 Labs 24H Laboratory Tests 2 09/23/19 06:11: Immature Granulocyte % (Auto) 1.3, Neutrophils (%) (Auto) 58.9, Lymphocytes (%) (Auto) 26.9, Monocytes (%) (Auto) 9.7H, Eosinophils (%) (Auto) 2.5, Basophils (%) (Auto) 0.7, Neutrophils # (Auto) 5.0, Lymphocytes # (Auto) 2.3, Monocytes # (Auto) 0.8, Eosinophils # (Auto) 0.2, Basophils # (Auto) 0.1, Nucleated Red Blood Cells % (auto) 0.0, Anion Gap 4L, Glomerular Filtration Rate > 60.0, Calcium Level 8.6L Current Medications Current Medications Current Medications Medications (Trade) Dose Ordered Sig/Zbigniew Route PRN Reason Start Time Stop Time Status Last Admin Dose Admin Acetaminophen (Tylenol Tab) 650 mg Q4HP PRN PO fever/MILD PAIN (PS 1-4) 09/16/19 14:00 09/23/19 09:44 Atorvastatin Calcium (Lipitor) 10 mg DAILY PO 09/17/19 09:00 09/23/19 09:51 Bisacodyl (Dulcolax Suppository) 10 mg DAILYPRN PRN [place] CONSTIPATION 09/16/19 14:00 Brimonidine Tartrate (Alphagan P 0.1%) 1 drop BID OU 09/16/19 21:00 09/23/19 09:51 Coenzyme Q10 (Coenzyme Q10) 200 mg DAILY PO 09/17/19 09:00 10/17/19 08:59 09/23/19 09:45 Docusate Sodium (Colace) 100 mg BID PO 09/16/19 21:00 09/23/19 09:50 Fluticasone Propionate (Flonase 0.05% Nasal [place]) 1 spray BID NARES 09/16/19 21:00 09/22/19 09:26 Heparin Sodium (Porcine) (Heparin) 5,000 units Q12H SC 09/16/19 21:00 09/23/19 08:28 DC 09/20/19 20:50 Latanoprost (Xalatan 0.005% Op Soln) 1 drop QHS OU 09/16/19 21:00 09/22/19 21:20 Levothyroxine Sodium (Synthroid) 100 mcg DAILY@06 PO 09/17/19 06:00 09/23/19 05:30 Meclizine HCl (Antivert) 12.5 mg TID PO 09/16/19 16:00 09/16/19 16:02 DC Metoprolol Succinate (TopROL XL) 12.5 mg DAILY PO 09/17/19 09:00 09/23/19 09:44 Ondansetron HCl (Zofran) 4 mg Q6HP PRN PO NAUSEA/dizziness 09/16/19 14:00 Pantoprazole Sodium (Protonix) 40 mg BID PO 09/16/19 21:00 09/17/19 10:20 DC 09/17/19 08:47 Pantoprazole Sodium (Protonix) 40 mg DAILY PO 09/18/19 09:00 09/23/19 09:50 Prednisone (Deltasone) 50 mg DAILY PO 09/17/19 09:00 09/16/19 16:05 DC Senna (Senokot) 1 tab QHS PO 09/16/19 21:00 09/22/19 21:20 Sodium Chloride ([place] Nasal [place]) 2 spray TID NA 09/16/19 16:00 09/23/19 09:51 Trazodone HCl (Desyrel) 25 mg QHS PO 09/17/19 21:00 09/22/19 21:20 Trazodone HCl (Desyrel) 25 mg QHSP PRN PO INSOMNIA 09/16/19 16:15 09/17/19 14:47 CHRISTIAN ALDANA MD Sep 23, 2019:26
[2019-09-23 20:00] VITALS: BP 110/54
[2019-09-23] MEDS: traZODone 25MG PER 1/2 TABLET PO SCH (20:55)
[2019-09-23] MEDS: SENNA 8.6 MG TAB (SENOKOT) PO SCH (20:55)
[2019-09-23] MEDS: LATANOPROST 0.005% OPHTH SOLN 2.5 ML OU SCH (20:56)
[2019-09-23] MEDS: POLYVINYL ALCOHOL OPHTH SOLN 15 ML(LIQUITEARS) OU SCH (20:57)
[2019-09-24 06:06] VITALS: BP 131/75
[2019-09-24] MEDS: LEVOTHYROXINE 100MCG TABLET (0.1MG) PO SCH (06:27)
[2019-09-24] MEDS: FLUTICASONE PROP 0.05% NASAL SPRAY 16 GM (FLONASE) NARES SCH ×2 (09:00→20:43)
[2019-09-24] MEDS: REMEDY PHYTOPLEX Z-GUARD PASTE 113GM TUBE (FROM STOREROOM PRODUCT) TOP SCH ×3 (09:00→20:45)
[2019-09-24] MEDS: PANTOPRAZOLE 40MG TAB (PROTONIX) PO SCH (09:13)
[2019-09-24] MEDS: DOCUSATE SODIUM 100 MG CAP PO SCH ×2 (09:14→20:44)
[2019-09-24] MEDS: SODIUM CHLORIDE NASAL 0.65% SPRAY BTL (OCEAN) SCH ×3 (09:14→20:43)
[2019-09-24] MEDS: METOPROLOL SUCC *XL* 12.5MG PER 1/2 TAB (TopROL *XL*) PO SCH (09:14)
[2019-09-24] MEDS: CO-ENZYME Q10 50 MG CAP PO SCH (09:14)
[2019-09-24] MEDS: BRIMONIDINE 0.1% OPHTH SOLN 5 ML OU SCH ×2 (09:14→20:45)
[2019-09-24] MEDS: ATORVASTATIN 10 MG TAB PO SCH (09:14)
[2019-09-24] MEDS: POLYVINYL ALCOHOL OPHTH SOLN 15 ML(LIQUITEARS) OU SCH ×3 (09:15→20:44)
[2019-09-24 13:45] VITALS: BP 134/67
--- NOTE | 2019-09-24 16:07 | IPNPDOC ---
PM&R Progress Note DATE OF SERVICE: Sep 24, 2019 [employer] Progress Note Subjective: Patient reporting he feels well today. His forehead felt itchy, but he applied some lotion and it seems to have gone away. REVIEW OF SYSTEMS: The following is a completed review of systems and has been reviewed. Review of systems otherwise unremarkable. PAIN: Patient self reports no pain EYES: No recent vision changes EARS, NOSE, & THROAT: No throat pain, or dysphagia, or rhinorrhea CARDIOVASCULAR: Denies chest pain or palpitations PULMONARY: Denies shortness of breath GASTROINTESTINAL: Denies constipation/diarrhea GENITOURINARY: denies dysuria MUSCULOSKELETAL: generalized weakness NEUROLOGICAL:+vertigo (improving) HEMATOLOGICAL: denies easy bruising SKIN: no rash PSYCHIATRIC: Unremarkable All other review of systems found to be negative. PHYSICAL EXAMINATION: VITAL SIGNS: Please see below. GENERAL: Pleasant and cooperative. No acute distress. HEENT: PERRL. Extraocular movements intact. Clear conjunctiva CARDIOVASCULAR: Regular rate and rhythm. +systolic murmurs, rubs, or gallops LUNGS: Clear to auscultation bilaterally. No wheezes. No rhonchi ABDOMEN: Soft, nontender, nondistended. Positive bowel sounds. Normal active bowel sounds NEUROLOGICAL: Alert and oriented times three. Cranial nerves II through XII grossly intact. Sensation grossly intact +horizontal nystagmus with leftward gaze >right (-) dysmetria (-) babinksi/clonus EXTREMITIES: 5\5 strength bilateral upper extremities. 5\5 strength right lower extremity. 5/5 strength in left lower extremity. SKIN: intact ASSESSMENT:89-year-old M with past medical history of HLD, HTN who presents status post acute onset dizziness due to vestibular neuritis PLAN: 1. Rehab- PT/OT advance gait and ADL training, strengthen/stretch/maintain ROM all 4 limbs, vestibular therapy-ambulating without AD, room privileges 2. Neuro-patient with notable gait and mobility impairment due to vestibular neuritis, s/p steroid treatment, c/u Zofran prn 3. Cardiac: hx of HTN c/u beta-mina, 2gm sodium restrict -hx of diastolic CHF, daily weights, fluid restrict, monitor for fluid overload -medicine consulted to assist in overall management 4. Resp: encourage incentive spirometry, monitor for infection 5. Endo: hx of hypothyroidism, c/u Synthroid 6. DVT ppx: heparin and teds 7. GI ppx: Protonix 40mg daily 8. pain: Tylenol prn 9. Psycy: insomnia, c/u trazodone 10. Leukocytosis: improving, likely due to recent steroid use, will monitor-no signs of active infection 11. Dispo: 09-26-19 to [facility] Allergies Coded Allergies: lactose (Verified Adverse Reaction, Intermediate, 09/09/19) Vital Signs Vital Signs Date Time Temp Pulse Resp B/P (MAP) Pulse Ox O2 Delivery O2 Flow Rate FiO2 09/24/19 13:45 96.5 79 18 134/67 (89) 96 Room Air Current Medications Current Medications Current Medications Medications (Trade) Dose Ordered Sig/Zbigniew Route PRN Reason Start Time Stop Time Status Last Admin Dose Admin Acetaminophen (Tylenol Tab) 650 mg Q4HP PRN PO fever/MILD PAIN (PS 1-4) 09/16/19 14:00 09/23/19 09:44 Artificial Tears (Akwa Tears) 2 drop TID OU 09/23/19 21:00 09/24/19 16:02 Atorvastatin Calcium (Lipitor) 10 mg DAILY PO 09/17/19 09:00 09/24/19 09:14 Bisacodyl (Dulcolax Suppository) 10 mg DAILYPRN PRN [place]ST[place] 09/16/19 14:00 Brimonidine Tartrate (Alphagan P 0.1%) 1 drop BID OU 09/16/19 21:00 09/24/19 09:14 Coenzyme Q10 (Coenzyme Q10) 200 mg DAILY PO 09/17/19 09:00 10/17/19 08:59 09/24/19 09:14 Docusate Sodium (Colace) 100 mg BID PO 09/16/19 21:00 09/24/19 09:14 Fluticasone Propionate (Flonase 0.05% Nasal [place]) 1 spray BID NARES 09/16/19 21:00 09/23/19 20:56 Heparin Sodium (Porcine) (Heparin) 5,000 units Q12H SC 09/16/19 21:00 09/23/19 08:28 DC 09/20/19 20:50 Latanoprost (Xalatan 0.005% Op Soln) 1 drop QHS OU 09/16/19 21:00 09/23/19 20:56 Levothyroxine Sodium (Synthroid) 100 mcg DAILY@06 PO 09/17/19 06:00 09/24/19 06:27 Meclizine HCl (Antivert) 12.5 mg TID PO 09/16/19 16:00 09/16/19 16:02 DC Metoprolol Succinate (TopROL XL) 12.5 mg DAILY PO 09/17/19 09:00 09/24/19 09:14 Ondansetron HCl (Zofran) 4 mg Q6HP PRN PO NAUSEA/dizziness 09/16/19 14:00 Pantoprazole Sodium (Protonix) 40 mg BID PO 09/16/19 21:00 09/17/19 10:20 DC 09/17/19 08:47 Pantoprazole Sodium (Protonix) 40 mg DAILY PO 09/18/19 09:00 09/24/19 09:13 Prednisone (Deltasone) 50 mg DAILY PO 09/17/19 09:00 09/16/19 16:05 DC Senna (Senokot) 1 tab QHS PO 09/16/19 21:00 09/23/19 20:55 Sodium Chloride ([place] Nasal [place]) 2 spray TID NA 09/16/19 16:00 09/24/19 16:02 Trazodone HCl (Desyrel) 25 mg QHS PO 09/17/19 21:00 09/23/19 20:55 Trazodone HCl (Desyrel) 25 mg QHSP PRN PO INSOMNIA 09/16/19 16:15 09/17/19 14:47 CHRISTIAN ALDANA MD Sep 24, 2019 16:07
[2019-09-24] MEDS: traZODone 25MG PER 1/2 TABLET PO SCH (20:43)
[2019-09-24] MEDS: LATANOPROST 0.005% OPHTH SOLN 2.5 ML OU SCH (20:44)
[2019-09-24] MEDS: SENNA 8.6 MG TAB (SENOKOT) PO SCH (20:44)
[2019-09-24 22:00] VITALS: BP 121/70
[2019-09-25 06:00] VITALS: BP 127/71
[2019-09-25] MEDS: LEVOTHYROXINE 100MCG TABLET (0.1MG) PO SCH (06:29)
[2019-09-25] MEDS: POLYVINYL ALCOHOL OPHTH SOLN 15 ML(LIQUITEARS) OU SCH ×3 (08:32→20:53)
[2019-09-25] MEDS: SODIUM CHLORIDE NASAL 0.65% SPRAY BTL (OCEAN) SCH ×3 (08:32→20:52)
[2019-09-25] MEDS: FLUTICASONE PROP 0.05% NASAL SPRAY 16 GM (FLONASE) NARES SCH ×2 (08:32→20:53)
[2019-09-25] MEDS: PANTOPRAZOLE 40MG TAB (PROTONIX) PO SCH (08:33)
[2019-09-25] MEDS: ATORVASTATIN 10 MG TAB PO SCH (08:33)
[2019-09-25] MEDS: CO-ENZYME Q10 50 MG CAP PO SCH (08:33)
[2019-09-25] MEDS: DOCUSATE SODIUM 100 MG CAP PO SCH ×2 (08:33→20:51)
[2019-09-25] MEDS: METOPROLOL SUCC *XL* 12.5MG PER 1/2 TAB (TopROL *XL*) PO SCH (08:33)
[2019-09-25] MEDS: BRIMONIDINE 0.1% OPHTH SOLN 5 ML OU SCH ×2 (08:34→20:53)
[2019-09-25] MEDS: REMEDY PHYTOPLEX Z-GUARD PASTE 113GM TUBE (FROM STOREROOM PRODUCT) TOP SCH ×3 (08:34→20:53)
[2019-09-25] MEDS ORDERED: LEVO100T5 PO (11:28)
--- NOTE | 2019-09-25 13:55 | IPNPDOC ---
PM&R Progress Note DATE OF SERVICE: Sep 25, 2019 [employer] Progress Note Subjective: Patient seen in OT working on high level balance training, stating he feels well and thinks he is getting intense therapy. REVIEW OF SYSTEMS: The following is a completed review of systems and has been reviewed. Review of systems otherwise unremarkable. PAIN: Patient self reports no pain EYES: No recent vision changes EARS, NOSE, & THROAT: No throat pain, or dysphagia, or rhinorrhea CARDIOVASCULAR: Denies chest pain or palpitations PULMONARY: Denies shortness of breath GASTROINTESTINAL: Denies constipation/diarrhea GENITOURINARY: denies dysuria MUSCULOSKELETAL: generalized weakness NEUROLOGICAL:+vertigo (improving) HEMATOLOGICAL: denies easy bruising SKIN: no rash PSYCHIATRIC: Unremarkable All other review of systems found to be negative. PHYSICAL EXAMINATION: VITAL SIGNS: Please see below. GENERAL: Pleasant and cooperative. No acute distress. HEENT: PERRL. Extraocular movements intact. Clear conjunctiva CARDIOVASCULAR: Regular rate and rhythm. +systolic murmurs, rubs, or gallops LUNGS: Clear to auscultation bilaterally. No wheezes. No rhonchi ABDOMEN: Soft, nontender, nondistended. Positive bowel sounds. Normal active bowel sounds NEUROLOGICAL: Alert and oriented times three. Cranial nerves II through XII grossly intact. Sensation grossly intact +horizontal nystagmus with leftward gaze >right (-) dysmetria (-) babinksi/clonus EXTREMITIES: 5\5 strength bilateral upper extremities. 5\5 strength right lower extremity. 5/5 strength in left lower extremity. SKIN: intact ASSESSMENT:89-year-old M with past medical history of HLD, HTN who presents status post acute onset dizziness due to vestibular neuritis PLAN: 1. Rehab- PT/OT advance gait and ADL training, strengthen/stretch/maintain ROM all 4 limbs, vestibular therapy-ambulating without AD, room privileges 2. Neuro-patient with notable gait and mobility impairment due to vestibular neuritis, s/p steroid treatment, c/u Zofran prn 3. Cardiac: hx of HTN c/u beta-mina, 2gm sodium restrict -hx of diastolic CHF, daily weights, fluid restrict, monitor for fluid overload -medicine consulted to assist in overall management 4. Resp: encourage incentive spirometry, monitor for infection 5. Endo: hx of hypothyroidism, c/u Synthroid 6. DVT ppx: heparin and teds 7. GI ppx: Protonix 40mg daily 8. pain: Tylenol prn 9. Psycy: insomnia, c/u trazodone 10. Leukocytosis: resolved, likely due to recent steroid use, will monitor-no signs of active infection 11. Dispo: 09-26-19 to [facility] Allergies Coded Allergies: lactose (Verified Adverse Reaction, Intermediate, 09/09/19) Vital Signs Vital Signs Date Time Temp Pulse Resp B/P (MAP) Pulse Ox O2 Delivery O2 Flow Rate FiO2 09/25/19 08:33 65 127/71 09/25/19 06:00 98.3 14 97 Room Air Current Medications Current Medications Current Medications Medications (Trade) Dose Ordered Sig/Zbigniew Route PRN Reason Start Time Stop Time Status Last Admin Dose Admin Acetaminophen (Tylenol Tab) 650 mg Q4HP PRN PO fever/MILD PAIN (PS 1-4) 09/16/19 14:00 09/23/19 09:44 Artificial Tears (Akwa Tears) 2 drop TID OU 09/23/19 21:00 09/25/19 08:32 Atorvastatin Calcium (Lipitor) 10 mg DAILY PO 09/17/19 09:00 09/25/19 08:33 Bisacodyl (Dulcolax Suppository) 10 mg DAILYPRN PRN [place] CONSTIPATION 09/16/19 14:00 Brimonidine Tartrate (Alphagan P 0.1%) 1 drop BID OU 09/16/19 21:00 09/25/19 08:34 Coenzyme Q10 (Coenzyme Q10) 200 mg DAILY PO 09/17/19 09:00 10/17/19 08:59 09/25/19 08:33 Docusate Sodium (Colace) 100 mg BID PO 09/16/19 21:00 09/25/19 08:33 Fluticasone Propionate (Flonase 0.05% Nasal [place]) 1 spray BID NARES 09/16/19 21:00 09/25/19 08:32 Heparin Sodium (Porcine) (Heparin) 5,000 units Q12H SC 09/16/19 21:00 09/23/19 08:28 DC 09/20/19 20:50 Latanoprost (Xalatan 0.005% Op Soln) 1 drop QHS OU 09/16/19 21:00 09/24/19 20:44 Levothyroxine Sodium (Synthroid) 100 mcg DAILY@06 PO 09/17/19 06:00 09/25/19 06:29 Meclizine HCl (Antivert) 12.5 mg TID PO 09/16/19 16:00 09/16/19 16:02 DC Metoprolol Succinate (TopROL XL) 12.5 mg DAILY PO 09/17/19 09:00 09/25/19 08:33 Ondansetron HCl (Zofran) 4 mg Q6HP PRN PO NAUSEA/dizziness 09/16/19 14:00 Pantoprazole Sodium (Protonix) 40 mg BID PO 09/16/19 21:00 09/17/19 10:20 DC 09/17/19 08:47 Pantoprazole Sodium (Protonix) 40 mg DAILY PO 09/18/19 09:00 09/25/19 08:33 Prednisone (Deltasone) 50 mg DAILY PO 09/17/19 09:00 09/16/19 16:05 DC Senna (Senokot) 1 tab QHS PO 09/16/19 21:00 09/24/19 20:44 Sodium Chloride ([place] Nasal [place]) 2 spray TID NA 09/16/19 16:00 09/25/19 08:32 Trazodone HCl (Desyrel) 25 mg QHS PO 09/17/19 21:00 09/24/19 20:43 Trazodone HCl (Desyrel) 25 mg QHSP PRN PO INSOMNIA 09/16/19 16:15 09/17/19 14:47 CHRISTIAN ALDANA MD Sep 25, 2019 13:55
[2019-09-25 14:15] VITALS: BP 129/64
[2019-09-25 20:00] VITALS: BP 122/63
[2019-09-25] MEDS: traZODone 25MG PER 1/2 TABLET PO SCH (20:51)
[2019-09-25] MEDS: SENNA 8.6 MG TAB (SENOKOT) PO SCH (20:51)
[2019-09-25] MEDS: LATANOPROST 0.005% OPHTH SOLN 2.5 ML OU SCH (20:53)
[2019-09-26] MEDS: LEVOTHYROXINE 100MCG TABLET (0.1MG) PO SCH (05:37)
[2019-09-26 06:00] VITALS: BP 132/65
[2019-09-26] MEDS: ATORVASTATIN 10 MG TAB PO SCH (08:19)
[2019-09-26] MEDS: DOCUSATE SODIUM 100 MG CAP PO SCH (08:19)
[2019-09-26] MEDS: PANTOPRAZOLE 40MG TAB (PROTONIX) PO SCH (08:19)
[2019-09-26 08:20] VITALS: BP 132/65
[2019-09-26] MEDS: METOPROLOL SUCC *XL* 12.5MG PER 1/2 TAB (TopROL *XL*) PO SCH (08:20)
[2019-09-26] MEDS: SODIUM CHLORIDE NASAL 0.65% SPRAY BTL (OCEAN) SCH (08:20)
[2019-09-26] MEDS: CO-ENZYME Q10 50 MG CAP PO SCH (08:20)
[2019-09-26] MEDS: REMEDY PHYTOPLEX Z-GUARD PASTE 113GM TUBE (FROM STOREROOM PRODUCT) TOP SCH (08:21)
[2019-09-26] MEDS: POLYVINYL ALCOHOL OPHTH SOLN 15 ML(LIQUITEARS) OU SCH (08:21)
[2019-09-26] MEDS: FLUTICASONE PROP 0.05% NASAL SPRAY 16 GM (FLONASE) NARES SCH (08:21)
[2019-09-26] MEDS: BRIMONIDINE 0.1% OPHTH SOLN 5 ML OU SCH (08:21)
== END 2019-09-26 13:07 | disposition home or self-care (01) | DRG 149 ==
LOC: M PM&R 13:50
PROVIDERS: ADMIT Physical Medicine & Rehabilitation; ATTEND Physical Medicine & Rehabilitation
DX: H81.23 Vestibular neuronitis, bilateral (principal); I50.32 Chronic diastolic (congestive) heart failure; E03.9 Hypothyroidism, unspecified; R26.89 Other abnormalities of gait and mobility; I11.0 Hypertensive heart disease with heart failure; E73.9 Lactose intolerance, unspecified; G47.00 Insomnia, unspecified; Z66 Do not resuscitate; Z90.49 Acquired absence of other specified parts of digestive tract; Z98.41 Cataract extraction status, right eye; Z98.42 Cataract extraction status, left eye; Z90.2 Acquired absence of lung [part of]; Z87.891 Personal history of nicotine dependence; Z86.15 Personal history of latent tuberculosis infection; Z79.899 Other long term (current) drug therapy

== ENCOUNTER → 2019-10-03 | Outpatient (RCR) | payer MEDICARE, OTHER ==
[~2019-10-03] MED LIST changes: +LEVO100T5 PO; +MECL12.589 PO
== END | disposition home or self-care (01) ==
LOC: M PT 09-30 12:03
PROVIDERS: ATTEND Internal Medicine
DX: R26.9 Unspecified abnormalities of gait and mobility (principal)

== ENCOUNTER 2019-10-22 13:00 | Outpatient (RCR) | payer MEDICARE, OTHER | END 2019-11-03 | LOC: M PT 13:00 | PROVIDERS: ATTEND Internal Medicine | DX: Z51.89 Encounter for other specified aftercare (principal); R26.9 Unspecified abnormalities of gait and mobility; H81.90 Unspecified disorder of vestibular function, unspecified ear ==

== ENCOUNTER → 2019-11-15 | Outpatient (REF) | payer MEDICARE, OTHER ==
[2019-11-15 11:50] LABS: BLOOD UREA NITROGEN 21 MG/DL (7-18); CARBON DIOXIDE LEVEL 29 MEQ/L (21-32); CHLORIDE LEVEL 107 MEQ/L (98-107); CREATININE FOR GFR 1.15 MG/DL (0.70-1.30); GLOMERULAR FILTRATION RATE > 60.0 (>35); GLUCOSE, FASTING 89 MG/DL (70-100); POTASSIUM SERUM 4.4 MEQ/L (3.5-5.1); SODIUM LEVEL 142 MEQ/L (136-145)
[2019-11-15 11:51] LABS: ALBUMIN 3.4 GM/DL (3.2-5.2); ALT/SGPT 36 U/L (12-78); BILIRUBIN,TOTAL 0.7 MG/DL (0.2-1.0); CALCIUM LEVEL 8.7 MG/DL (8.8-10.2); MAGNESIUM LEVEL 2.2 MG/DL (1.8-2.4); TOTAL PROTEIN 6.8 GM/DL (6.4-8.2)
== END ==
LOC: M PLALAB 09:58
PROVIDERS: ATTEND Internal Medicine
DX: N18.3 Chronic kidney disease, stage 3 (moderate) (principal); E03.9 Hypothyroidism, unspecified

== ENCOUNTER → 2020-01-24 | Outpatient (REF) | payer MEDICARE, OTHER ==
[~2020-01-24] MED LIST changes: +ACET1TAB16 PO; +DOXY100C37
== END ==
LOC: M LAB REF 13:20
PROVIDERS: ATTEND Urology
DX: C67.9 Malignant neoplasm of bladder, unspecified (principal)

== ENCOUNTER 2020-04-04 12:52 | Emergency (ER) | payer MEDICARE, OTHER ==
[~2020-04-04] VITALS: Ht 167.6 cm; Wt 85.5 kg
[~2020-04-04 12:52] MED LIST changes: -ACET1TAB16 PO; -DOXY100C37
[2020-04-04] MEDS ORDERED: DOXY100C37 (13:06)
--- NOTE | 2020-04-04 13:52 | REP ---
INDICATION: fall/ pain. COMPARISON: Comparison chest x-ray August 27, 2018.. TECHNIQUE: Three views. FINDINGS: There is a comminuted fracture of the surgical neck and greater tuberosity region of the left proximal humerus. There is diffuse osteoporosis. The glenohumeral acromioclavicular joints are normally aligned. There is old deformity of the left upper ribcage with volume loss in left hemithorax. This is unchanged from comparison chest x-ray. No acute rib fracture is seen. Clavicle and scapula appear intact. IMPRESSION: Comminuted acute fracture of the surgical neck and greater tuberosity region of the proximal humerus. Diffuse osteopenia. Old chest wall deformity on the left. <Electronically signed by Gareth Oquendo > 04/04/20 [id number]
--- NOTE | 2020-04-04 13:54 | REP ---
INDICATION: fall. COMPARISON: None. TECHNIQUE: Two views. FINDINGS: Two views of the left humerus demonstrate a comminuted surgical neck and greater tuberosity fracture of the proximal humerus. There is diffuse osteopenia. No distal humeral or diaphyseal fracture is appreciated.. . No opaque foreign body noted. IMPRESSION: Comminuted fracture of the surgical neck and greater tuberosity region of the proximal humerus. Diffuse osteopenia.. <Electronically signed by Gareth Oquendo > 04/04/20 [id number]
[2020-04-04] MEDS ORDERED: ACETAMINOPHEN 500 MG TAB PO ONE (14:15)
[2020-04-04] MEDS ORDERED: ACET1TAB16 PO (14:33)
[2020-04-04 14:53] VITALS: BP 138/74
== END 2020-04-04 15:00 | disposition home or self-care (01) ==
LOC: M ED 12:52
DX: S42.255A Nondisplaced fracture of greater tuberosity of left humerus, initial encounter for closed fracture (principal); S42.225A 2-part nondisplaced fracture of surgical neck of left humerus, initial encounter for closed fracture; M85.812 Other specified disorders of bone density and structure, left shoulder; W10.8XXA Fall (on) (from) other stairs and steps, initial encounter; Y92.89 Other specified places as the place of occurrence of the external cause; I51.9 Heart disease, unspecified; E78.5 Hyperlipidemia, unspecified; I49.3 Ventricular premature depolarization; J30.9 Allergic rhinitis, unspecified; E03.9 Hypothyroidism, unspecified; Z85.51 Personal history of malignant neoplasm of bladder; Z91.011 Allergy to milk products; Z79.899 Other long term (current) drug therapy; Z79.2 Long term (current) use of antibiotics

== ENCOUNTER → 2020-05-09 | Outpatient (CLI) | payer MEDICARE, OTHER ==
[~2020-05-09] MED LIST changes: +ACET1TAB16 PO; +DOXY100C37; -MECL12.589 PO; +MECL12.590 PO
== END ==
LOC: M LABSMTC 12:32
PROVIDERS: ATTEND Pediatrics
DX: Z20.828 Contact with and (suspected) exposure to other viral communicable diseases (principal)

== ENCOUNTER → 2020-05-22 | Outpatient (REF) | payer MEDICARE, OTHER ==
[2020-05-22 12:13] LABS: HEMATOCRIT 48.9 % (42.0-52.0); HEMOGLOBIN 15.5 g/dl (13.5-17.5); MEAN CORPUSCULAR HEMOGLOBIN 28.7 pg (27.0-33.0); MEAN CORPUSCULAR HGB CONC 31.7 g/dl (32.0-36.5); MEAN CORPUSCULAR VOLUME 90.6 fl (80.0-96.0); PLATELET COUNT, AUTOMATED 260 10^3/uL (150-450); WHITE BLOOD COUNT 15.7 10^3/uL (4.0-10.0)
[2020-05-22 12:40] LABS: ALBUMIN 3.6 GM/DL (3.2-5.2); ALT/SGPT 58 U/L (12-78); BILIRUBIN,TOTAL 0.6 MG/DL (0.2-1.0); BLOOD UREA NITROGEN 27 MG/DL (7-18); CALCIUM LEVEL 9.4 MG/DL (8.8-10.2); CARBON DIOXIDE LEVEL 30 MEQ/L (21-32); CHLORIDE LEVEL 106 MEQ/L (98-107); CHOLESTEROL LEVEL 194 MG/DL (<200); CHOLESTEROL RISK RATIO 2.895 (<5); CREATININE FOR GFR 1.13 MG/DL (0.70-1.30); GLOMERULAR FILTRATION RATE > 60.0 (>35); GLUCOSE, FASTING 89 MG/DL (70-100); HDL CHOLESTEROL 67 MG/DL (>40); LDL CHOLESTEROL 100 MG/DL (<100); NON-HDL-C 127 MG/DL; POTASSIUM SERUM 4.4 MEQ/L (3.5-5.1); SODIUM LEVEL 141 MEQ/L (136-145); TOTAL PROTEIN 7.3 GM/DL (6.4-8.2); TRIGLYCERIDES LEVEL 133 MG/DL (<150)
== END ==
LOC: M PLALAB 08:57
PROVIDERS: ATTEND Internal Medicine
DX: Z85.51 Personal history of malignant neoplasm of bladder (principal); E78.00 Pure hypercholesterolemia, unspecified

== ENCOUNTER → 2020-05-25 | Outpatient (CLI) | payer MEDICARE, OTHER ==
--- NOTE | 2020-05-25 12:03 | REPPI ---
INDICATION: COUGH COMPARISON: 08/27/2018 TECHNIQUE: PA and lateral. FINDINGS: The mediastinum and cardiac silhouette are normal. The lung mcintosh demonstrate stable chronic changes including calcified granuloma at the left base without acute consolidation, effusion, or pneumothorax. The skeletal structures are intact and deformity along the left upper ribcage remains stable. IMPRESSION: No acute cardiopulmonary process. <Electronically signed by Lan De La Cruz > 05/25/20 [id number]
== END ==
LOC: M PLAIMG 11:50
PROVIDERS: ATTEND Internal Medicine
DX: R05 Cough (principal)
CPT/HCPCS: 71046; G0463